=== PATIENT | male | born 1970 | race African-American/Black ===

== ENCOUNTER 2016-10-07 05:41 | Emergency (ER) | payer OTHER ==
--- NOTE | 2016-10-07 06:05 | PDOC ---
History of Present Illness - General History Source: Patient Exam Limitations: No Limitations - History of Present Illness Initial Comments: 10/07/16 06:15 The patient is a 45 year old male with significant past medical history diabetes and hypertension who presents to the ED for less than 24 hours of headache and abdominal pain. Patient reports he went out for ice cream around 10pm last night and subsequently developed a headache. After waking up this morning he developed abdominal pain, which he describes as nonradiating and pressure-like sensation in the epigastric region. Denies nausea, vomiting, or diarrhea. States he is compliant with his medications. However, he did not take his blood pressure medications prior to arrival. Denies any sick contacts or recent travels. The patient denies fever, chills, cough, SOB, chest pain, and palpitations. Allergies: NKDA Social History: Denies tobacco or drug use. Past Surgical History: None reported PCP: Dr. Malia Alicea <Concetta Laureano - Last Filed: 10/07/16 06:15> - General History Source: Patient <Good Serrano - Last Filed: 10/07/16 19:18> - General Stated Complaint: STOMACH AND HEAD HURTING Time Seen by Provider: 10/07/16 06:01 Past History <Concetta Laureano - Last Filed: 10/07/16 06:15> - Past Medical History Anemia: No Asthma: Yes Cancer: No Cardiac Disorders: No CVA: No COPD: No CHF: No Dementia: No Diabetes: Yes GI Disorders: Yes (GERD) Disorders: No HTN: Yes Hypercholesterolemia: Yes Liver Disease: (FATTY LIVER) Seizures: No Thyroid Disease: No - Surgical History Abdominal Surgery: (umbilcial hernia repair) Appendectomy: No Cardiac Surgery: No Cholecystectomy: No Lung Surgery: No Neurologic Surgery: No Orthopedic Surgery: No - Psycho/Social/Smoking Cessation Hx Anxiety: No Suicidal Ideation: No Smoking Status: No Smoking History: Never smoked Have you smoked in the past 12 months: No Number of Cigarettes Smoked Daily: 0 If you are a former smoker, when did you quit?: 1994 Hx Alcohol Use: No Drug/Substance Use Hx: No Substance Use Type: None Hx Substance Use Treatment: No <Good Serrano - Last Filed: 10/07/16 19:18> - Past Medical History Allergies/Adverse Reactions: Allergies Allergy/AdvReac Type Severity Reaction Status Date / Time shellfish derived Allergy Rash Verified 10/07/16 11:06 Home Medications: Ambulatory Orders Glipizide [Glipizide ER] 5 mg PO DAILY 09/15/12 Amlodipine Besylate 10 mg PO DAILY 10/07/16 Losartan Potassium 50 mg PO DAILY 10/07/16 Review of Systems - Review of Systems Able to Perform ROS?: Yes Comments:: 10/07/16 06:15 CONSTITUTIONAL: Absent: fever, no chills, no fatigue EYES: Absent: visual changes ENT: Absent: ear pain, no sore throat CARDIOVASCULAR: Absent: chest pain, no palpitations RESPIRATORY: Absent: cough, no SOB GI: +abdominal pain Absent: no nausea, no vomiting, no constipation, no diarrhea GENITOURINARY: Absent: dysuria, no frequency, no hematuria MUSCULOSKELETAL: Absent: back pain, no arthralgia, no myalgia SKIN: Absent: rash NEURO: +headache <Concetta Laureano - Last Filed: 10/07/16 06:15> *Physical Exam - Vital Signs Last Vital Signs Temp Pulse Resp BP Pulse Ox 97.6 F 68 18 159/93 100 10/07/16 05:42 10/07/16 05:42 10/07/16 05:42 10/07/16 05:42 10/07/16 05:42 - Physical Exam Comments: 10/07/16 06:15 GENERAL: Well-appearing, well-nourished. Mild distress. HEENT: Normocephalic, atraumatic. PERRL, EOM intact. CARDIOVASCULAR: Normal S1, S2. Regular rate and rhythm. PULMONARY: Clear to auscultation bilaterally. ABDOMEN: Soft, non-distended, non-tender. EXTREMITIES: Normal ROM in all four extremities. No gross deformities. SKIN: Warm, dry. No rash NEUROLOGICAL: No focal neurological deficits. <Concetta Laureano - Last Filed: 10/07/16 06:15> ED Treatment Course - LABORATORY CBC & Chemistry Diagram: 10/07/16 06:31 10/07/16 06:31 <Good Serrano - Last Filed: 10/07/16 19:18> Medical Decision Making - Medical Decision Making 10/07/16 19:18 Dr. Serrano: The scribe's documentation has been prepared under my direction and personally reviewed by me in its entirery. I confirm that the note above accurately reflects all work, treatment, procedures, and medical decision making performed by me. <Good Serrano - Last Filed: 10/07/16 19:18> *DC/Admit/Observation/Transfer - Attestations Scribe Attestion: 10/07/16 06:16 Documentation prepared by Concetta Laureano, acting as medical referral coordinator for Good Serrano MD/DO. <Concetta Laureano - Last Filed: 10/07/16 06:15> - Discharge Dispostion Admit: No <Good Serrano - Last Filed: 10/07/16 19:18> Diagnosis at time of Disposition: Headache Qualifiers: Headache type: unspecified Headache chronicity pattern: acute headache Intractability: not intractable Qualified Code(s): R51 - Headache High blood pressure Qualifiers: Hypertension type: essential hypertension Qualified Code(s): I10 - Essential ( primary) hypertension - Discharge Dispostion Disposition: HOME Condition at time of disposition: Stable - Referrals Referrals: Malia Alicea MD [Primary Care Provider] - - Patient Instructions Printed Discharge Instructions: DI for High Blood Pressure, DI for Headache Additional Instructions: Thank you for coming in to the ER today Please take medications as prescribed please follow up with Dr Malia Vallecillo within 1 week Please return to the ER with ANY other concerns or complaints - Post Discharge Activity Work/School Note: Back to Work
[2016-10-07] MEDS ORDERED: LOSARTAN POTASSIUM 50 MG TABLET (FP) PO ONE (06:07)
[2016-10-07 06:09] VITALS: TEMP 97.6; BMI 41.9
[2016-10-07] MEDS ORDERED: LOSARTAN POTASSIUM 25 MG TABLET ONE (06:20)
[2016-10-07 06:36] LABS: BASOPHIL 0.9 % (0-2.0); EOSINOPHIL 3.7 % (0-4.5); MCH 28.2 pg (25.7-33.7); MCHC 32.1 g/dl (32.0-35.9); MEAN CELL VOLUME 87.8 fl (80-96); NEUTROPHILS 50.6 % (42.8-82.8); PLATELET COUNT 138 K/MM3 (134-434); RDW 15.2 % (11.9-15.9); WHITE BLOOD COUNT 3.3 K/mm3 (4.0-10.0)
[2016-10-07 07:09] LABS: INR 1.12 (0.82-1.09); PROTHROMBIN TIME (PATIENT) 12.3 SEC (9.98-11.88)
[2016-10-07 07:16] LABS: MAGNESIUM 2.2 mg/dL (1.8-2.4)
--- NOTE | 2016-10-07 07:19 | PDOC ---
*Physical Exam - Vital Signs Last Vital Signs Temp Pulse Resp BP Pulse Ox 97.6 F 68 18 159/93 100 10/07/16 05:42 10/07/16 05:42 10/07/16 05:42 10/07/16 05:42 10/07/16 05:47 ED Treatment Course - LABORATORY CBC & Chemistry Diagram: 10/07/16 06:31 10/07/16 06:31 - ADDITIONAL ORDERS Additional order review: Laboratory Results 10/07/16 06:31 Magnesium 2.2 Total Amylase 68 Lipase 87 10/07/16 06:31 RBC 4.64 MCV 87.8 MCHC 32.1 RDW 15.2 MPV 11.0 Neutrophils % 50.6 Lymphocytes % 35.3 D Monocytes % 9.5 Eosinophils % 3.7 Basophils % 0.9 - Medications Given in the ED: ED Medications Discontinued Medications Generic Name Dose Route Start Last Admin Trade Name Freq PRN Reason Stop Dose Admin Losartan Potassium 50 mg 10/07/16 06:07 10/07/16 06:19 Cozaar - PO 10/07/16 06:08 50 mg ONCE ONE Administration Medical Decision Making - Medical Decision Making 10/07/16 07:18 I received this patient on sign out Pt presents to the ER with headache and abdominal pain His symptoms began at approximately 10 pm 10/07/16 07:19 Laboratory Tests 10/07/16 10/07/16 06:31 06:31 WBC 3.3 L Hgb 13.1 D Hct 40.7 Plt Count 138 Magnesium 2.2 Total Amylase 68 Lipase 87 CMP pending Pt given his anti hypertensive which he did not take yesterday 10/07/16 07:36 Upon re assessment, pt states he feels well No headache now States his headache was a gradual onset, located on the left side of his head No focal weakness or numbness No dizziness No visual changes No chest pain Currently, pt headache has completely resolved Pt also states that his abdominal pain has completely resolved 10/07/16 07:38 10/07/16 07:38 Laboratory Tests 10/07/16 06:31 BUN 17 D Creatinine 1.3 Creatine Kinase 775 H Troponin I < 0.02 10/07/16 07:51 Laboratory Tests 10/07/16 06:31 CK-MB (CK-2) 6.130 H Troponin I < 0.02 Pt CKMB is elevated Will repeat troponin in 4 hours 10/07/16 07:52 10/07/16 11:30 Laboratory Tests 10/07/16 10:11 Creatine Kinase 780 H Troponin I < 0.02 Will contact cardiology 10/07/16 11:37 Pt CK index low Will ask pt to stay hydrated Will ask patient to monitor his urine output and monitor himself for darkening of his urine Pt given copies of all labs Pt asked to follow up with PMD within 1 week Return to the Er for any other concerns or complaints 10/07/16 11:38 *DC/Admit/Observation/Transfer Diagnosis at time of Disposition: Headache Qualifiers: Headache type: unspecified Headache chronicity pattern: acute headache Intractability: not intractable Qualified Code(s): R51 - Headache Hypertension Qualifiers: Hypertension type: essential hypertension Qualified Code(s): I10 - Essential ( primary) hypertension - Discharge Dispostion Disposition: HOME Admit: No - Referrals Referrals: Malia Alicea MD [Primary Care Provider] - - Patient Instructions Printed Discharge Instructions: DI for Headache, DI for High Blood Pressure Additional Instructions: Thank you for coming in to the ER today Please take medications as prescribed please follow up with Dr Malia Vallecillo within 1 week Please return to the ER with ANY other concerns or complaints - Post Discharge Activity Work/School Note: Back to Work
[2016-10-07 07:20] LABS: ALBUMIN 3.4 g/dl (3.4-5.0); ANION GAP 6 (8-16); BILIRUBIN,TOTAL 0.5 mg/dL (0.2-1.0); CALCIUM 8.6 mg/dL (8.5-10.1); CO2 32 mmol/L (21-32); COCKROFT - GAULT 143.31; CREATININE 1.3 mg/dL (0.7-1.3); GLUCOSE,RANDOM 128 mg/dL (74-106); SGOT/AST 30 U/L (15-37); SGPT/ALT 37 U/L (12-78); TOT PROT 6.4 g/dl (6.4-8.2)
[2016-10-07 07:23] LABS: ALK PHOS 75 U/L (45-117); TROPONIN I < 0.02 ng/ml (0.00-0.05)
--- NOTE | 2016-10-07 10:30 | EKG ---
Test Reason : Blood Pressure : / mmHG Vent. Rate : 065 BPM Atrial Rate : 065 BPM P-R Int : 170 ms QRS Dur : 102 ms QT Int : 422 ms P-R-T Axes : 052 005 022 degrees QTc Int : 438 ms NORMAL SINUS RHYTHM NORMAL ECG WHEN COMPARED WITH ECG OF 15-SEP-2012 06:08, NO SIGNIFICANT CHANGE WAS FOUND Confirmed by SEAN FIELDS MD ([id number]) on 10/07/2016 10:29:50 AM Referred By: Confirmed By:SEAN FIELDS MD
[2016-10-07 11:21] LABS: TROPONIN I < 0.02 ng/ml (0.00-0.05)
[2016-10-07 11:50] VITALS: BP 146/84; PULSE 72
== END 2016-10-07 11:58 | disposition home or self-care (01) ==
LOC: JER 05:41
DX: R51 Headache (principal); I10 Essential (primary) hypertension; E11.9 Type 2 diabetes mellitus without complications; J45.909 Unspecified asthma, uncomplicated; K21.9 Gastro-esophageal reflux disease without esophagitis; K76.0 Fatty (change of) liver, not elsewhere classified; Z91.013 Allergy to seafood
CPT/HCPCS: 36415; 80053; 82150; 82550; 82553; 83690; 83735; 84484; 85025; 85610; 93005; 93010; 99285-25

== ENCOUNTER 2017-02-26 07:52 | Emergency (ER) | payer OTHER ==
[2017-02-26 08:12] VITALS: TEMP 98.3; BMI 39.5
[2017-02-26] MEDS ORDERED: KETOROLAC TROMETHAMINE 30 MG/1 ML VIAL IVPUSH ONE (08:31)
[2017-02-26] MEDS ORDERED: SODIUM CHLORIDE 1,000 ML IV STA (08:31)
[2017-02-26] MEDS ORDERED: PANTOPRAZOLE SODIUM 40 MG in SODIUM CHLORIDE 100 ML IVPB ONE (08:31)
[2017-02-26] MEDS ORDERED: ONDANSETRON 4 MG/2 ML VIAL IVPUSH ONE (08:31)
[2017-02-26] MEDS ORDERED: ONDANSETRON 4 MG/2 ML VIAL ONE (09:01)
[2017-02-26] MEDS ORDERED: PANTOPRAZOLE SODIUM 40 MG VIAL ONE (09:01)
--- NOTE | 2017-02-26 09:49 | PDOC ---
History of Present Illness - General Chief Complaint: Pain, Acute Stated Complaint: STOMACH PAIN Time Seen by Provider: 02/26/17 08:25 History Source: Patient Exam Limitations: No Limitations - History of Present Illness Travel History: No Initial Comments: 02/26/17 09:49 46-year-old male presents to the ED with complaints of epigastric burning and dull pain that radiates his right upper quadrant since this morning. Patient states yesterday was drinking alcohol along with fruit juices and states had no discomfort then. Patient denies fever, chills but states mild nausea. Patient also states feels dehydrated. Patient states has had similar symptoms like in the past also from drinking and normally takes Gas-X with good relief but did not have anything at home to decided come to the ER. Patient has no complaints of change in bowel, change in urine pattern, vomiting, constipation, radiation of pain, or difficulty breathing. 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 Timing/Duration: reports: constant Quality: reports: burning, dullness Abdominal Pain Onset Location: reports: epigastric Pain Radiation: reports: RUQ Activities at Onset: reports: none Aggravating Factors: improves with: None Alleviating Factors: improves with: None Past History - Past Medical History Allergies/Adverse Reactions: Allergies Allergy/AdvReac Type Severity Reaction Status Date / Time shellfish derived Allergy Rash Verified 02/26/17 08:06 Home Medications: Ambulatory Orders Glipizide [Glipizide ER] 5 mg PO DAILY 09/15/12 Losartan Potassium 50 mg PO DAILY 10/07/16 Anemia: No Asthma: Yes Cancer: No Cardiac Disorders: No CVA: No COPD: No CHF: No Dementia: No Diabetes: Yes GI Disorders: No Disorders: No HTN: Yes Hypercholesterolemia: Yes Liver Disease: (FATTY LIVER) Seizures: No Thyroid Disease: No - Surgical History Abdominal Surgery: Yes (umbilcial hernia repair) Appendectomy: No Cardiac Surgery: No Cholecystectomy: No Lung Surgery: No Neurologic Surgery: No Orthopedic Surgery: No - Suicide/Smoking/Psychosocial Hx Smoking Status: No Smoking History: Never smoked Have you smoked in the past 12 months: No Number of Cigarettes Smoked Daily: 0 If you are a former smoker, when did you quit?: 1994 Information on smoking cessation initiated: No Hx Alcohol Use: Yes Drug/Substance Use Hx: No Substance Use Type: None Hx Substance Use Treatment: No Patient Lives Alone: No Lives with/in: spouse/SO Abd/GI Specific PMHX - Complaint Specific PMHX GI Ulcer Disease: No Review of Systems - Review of Systems Able to Perform ROS?: No Constitutional: No: Symptoms Reported HEENTM: No: Symptoms Reported Respiratory: No: Symptoms reported Cardiac (ROS): No: Symptoms Reported ABD/GI: Yes: Nausea, Indigestion : No: Symptoms Reported Musculoskeletal: No: Symptoms Reported Integumentary: No: Symptoms Reported Neurological: No: Symptoms reported Endocrine: No: Symptoms Reported *Physical Exam - Vital Signs Last Vital Signs Temp Pulse Resp BP Pulse Ox 98.3 F 89 20 150/87 100 02/26/17 08:07 02/26/17 08:07 02/26/17 08:07 02/26/17 08:07 02/26/17 08:07 - Physical Exam General Appearance: Yes: Nourished, Appropriately Dressed. No: Apparent Distress HEENT: negative: Pale Conjunctivae Neck: positive: Supple Respiratory/Chest: positive: Lungs Clear, Normal Breath Sounds. negative: Respiratory Distress, Accessory Muscle Use Cardiovascular: positive: Regular Rhythm, Regular Rate. negative: Murmur Gastrointestinal/Abdominal: positive: Normal Bowel Sounds, Soft, Tenderness ( epigastric. right epigastric. Negative [place]). negative: Distended, Guarding , Rebound, Hernia, Mass Musculoskeletal: negative: CVA Tenderness (R) Integumentary: positive: Normal Color, Warm, Moist Neurologic: positive: Motor Strength 5/5 (ambulatory) ED Treatment Course - LABORATORY CBC & Chemistry Diagram: 02/26/17 08:30 02/26/17 10:45 Medical Decision Making - Medical Decision Making 02/26/17 10:04 Patient was of nausea and epigastric pain after drinking last night. Patient with similar symptoms in the past but denies GI disorders and has not seen a gastric neurologist. Patient exam was tender to the epigastric and right epigastric area. patient with likely gastritis. Will rule out inflammatory process and pancreatitis.Patient ordered for Protonix, IV fluids, Zofran, Toradol CBC, comp and lipase. 02/26/17 12:12 Laboratory Tests 02/26/17 10:45 Sodium 139 Potassium 4.2 Chloride 104 Carbon Dioxide 28 Anion Gap 7 L Creatinine 1.4 H Creat Clearance w eGFR 54.09 Random Glucose 140 H Calcium 8.4 L AST 23 D ALT 33 Lipase 122 02/26/17 12:12 Laboratory Tests 01/23/11 08/29/13 10/07/16 08:49 09:41 06:31 WBC 3.2 L 3.3 L Hgb Hct Plt Count 126.0 L 138 MPV 02/26/17 08:30 WBC 2.7 L Hgb 13.3 Hct 39.8 Plt Count 127 L MPV 11.5 H Patient states feeling better after receiving medication. Patient to be discharged home with Protonix and a GI referral. *DC/Admit/Observation/Transfer Diagnosis at time of Disposition: Epigastric abdominal pain, Nausea - Discharge Dispostion Disposition: HOME Condition at time of disposition: Improved - Referrals Referrals: Malia Alicea MD [Primary Care Provider] - Thor Hoang DO [Staff Physician] - - Patient Instructions Printed Discharge Instructions: DI for Epigastric Pain, DI for Nausea -- Adult Additional Instructions: Please follow-up with referral plastic jig and fixture builder and take Protonix as prescribed. Please avoid acidy, greasy spicy food and avoid excessive alcohol use.
[2017-02-26 10:30] LABS: BASOPHIL 1.2 % (0-2.0); EOSINOPHIL 3.2 % (0-4.5); MCH 29.3 pg (25.7-33.7); MCHC 33.3 g/dl (32.0-35.9); MEAN PLT VOLUME 11.5 fl (7.5-11.1); NEUTROPHILS 56.3 % (42.8-82.8); PLATELET COUNT 127 K/MM3 (134-434); RDW 14.9 % (11.9-15.9); WHITE BLOOD COUNT 2.7 K/mm3 (4.0-10.0)
[2017-02-26 11:22] LABS: ALBUMIN 3.6 g/dl (3.4-5.0); ALK PHOS 92 U/L (45-117); ANION GAP 7 (8-16); BILIRUBIN,TOTAL 0.5 mg/dL (0.2-1.0); CALCIUM 8.4 mg/dL (8.5-10.1); CO2 28 mmol/L (21-32); CREATININE 1.4 mg/dL (0.7-1.3); GLUCOSE,RANDOM 140 mg/dL (74-106); SGOT/AST 23 U/L (15-37); SGPT/ALT 33 U/L (12-78); TOT PROT 6.8 g/dl (6.4-8.2)
[2017-02-26] MEDS ORDERED: ALBUTEROL SO4 2.5/IPRATROPIUM 0.5 INH SOL 3 ML VIAL.NEB. NEB ONE (12:15)
[2017-02-26 13:09] VITALS: BP 153/96; PULSE 66
== END 2017-02-26 13:09 | disposition home or self-care (01) ==
LOC: JER 07:52
PROC: 3E033GC Introduction of Other Therapeutic Substance into Peripheral Vein, Percutaneous Approach (ICD-10-PCS; principal; 2017-02-26)
PROC: 3E033GC Introduction of Other Therapeutic Substance into Peripheral Vein, Percutaneous Approach (ICD-10-PCS; 2017-02-26)
PROC: 3E0333Z Introduction of Anti-inflammatory into Peripheral Vein, Percutaneous Approach (ICD-10-PCS; 2017-02-26)
DX: K29.70 Gastritis, unspecified, without bleeding (principal); I10 Essential (primary) hypertension; E11.9 Type 2 diabetes mellitus without complications; Z79.84 Long term (current) use of oral hypoglycemic drugs; E78.00 Pure hypercholesterolemia, unspecified
CPT/HCPCS: 36415; 80053; 83690; 85025; 96365; 96375; 99282-25

== ENCOUNTER 2017-06-20 14:32 | Emergency (ER) | payer OTHER ==
[2017-06-20 15:21] VITALS: BMI 42.2
[2017-06-20] MEDS ORDERED: FAMOTIDINE IV 20 MG/12 ML VIAL IVPUSH ONE (16:08)
[2017-06-20] MEDS ORDERED: MAG HYDROX/AL HYDROX/SIMETH 355 ML ORAL.SUSP PO ONE (16:08)
--- NOTE | 2017-06-20 16:12 | PDOC ---
History of Present Illness - General Chief Complaint: Chest Pain Stated Complaint: CHEST PAIN, ABD PAIN Time Seen by Provider: 06/20/17 15:45 History Source: Patient - History of Present Illness Timing/Duration: other Associated Symptoms: denies: cough, diaphoresis, fever/chills, headaches, nausea /vomiting, shortness of breath Past History - Past Medical History Allergies/Adverse Reactions: Allergies Allergy/AdvReac Type Severity Reaction Status Date / Time shellfish derived Allergy Rash Verified 02/26/17 08:06 Home Medications: Ambulatory Orders Glipizide [Glipizide ER] 5 mg PO DAILY 09/15/12 Losartan Potassium 50 mg PO DAILY 10/07/16 Pantoprazole Sodium [Protonix] 40 mg PO DAILY #30 tablet. 02/26/17 Famotidine [Pepcid -] 20 mg PO DAILY #14 tablet 06/20/17 Mag Hydrox/Al Hydrox/Simeth [Mylanta Suspension -] 30 ml PO Q6H #1 bottle Anemia: No Asthma: Yes Cancer: No Cardiac Disorders: No CVA: No COPD: No CHF: No DVT: No Dementia: No Diabetes: Yes GI Disorders: No Disorders: No HTN: Yes Hypercholesterolemia: Yes Liver Disease: (FATTY LIVER) Seizures: No Thyroid Disease: No - Surgical History Abdominal Surgery: Yes (umbilcial hernia repair) Appendectomy: No Cardiac Surgery: No Cholecystectomy: No Lung Surgery: No Neurologic Surgery: No Orthopedic Surgery: No - Suicide/Smoking/Psychosocial Hx Smoking Status: No Smoking History: Never smoked Have you smoked in the past 12 months: No Number of Cigarettes Smoked Daily: 0 If you are a former smoker, when did you quit?: 1994 Information on smoking cessation initiated: No Hx Alcohol Use: No Drug/Substance Use Hx: No Substance Use Type: None Hx Substance Use Treatment: No Review of Systems - Review of Systems Constitutional: No: Chills, Fever Respiratory: No: Shortness of Breath Cardiac (ROS): Yes: Palpitations. No: Chest Pain, Lightheadedness, Syncope ABD/GI: No: Constipated, Diarrhea, Nausea, Vomiting *Physical Exam - Vital Signs Last Vital Signs Temp Pulse Resp BP Pulse Ox 98.7 F 78 18 157/78 98 06/20/17 15:06 06/20/17 15:06 06/20/17 15:06 06/20/17 15:06 06/20/17 15:44 - Physical Exam General Appearance: Yes: Appropriately Dressed. No: Apparent Distress HEENT: positive: Normal Voice Neck: positive: Supple Respiratory/Chest: positive: Lungs Clear, Normal Breath Sounds. negative: Respiratory Distress Cardiovascular: positive: Regular Rate, S1, S2 Gastrointestinal/Abdominal: positive: Soft. negative: Tender Integumentary: positive: Dry, Warm Neurologic: positive: Fully Oriented, Alert, Normal Mood/Affect Heart Score/ECG Review - ECG Intrepretation Comment:: 06/20/17 16:13 Twelve-lead EKG was performed and reviewed by me. There is normal sinus rhythm with a normal rate. The axis is normal. The intervals are normal. There are no ST or T wave abnormalities. Impression: Normal twelve-lead EKG ED Treatment Course - LABORATORY CBC & Chemistry Diagram: 06/20/17 16:12 06/20/17 16:12 - RADIOLOGY Radiology Studies Ordered: Category Date Time Status CHEST PA & LAT [RAD] Stat Radiology 06/20/17 15:47 Ordered Medical Decision Making - Medical Decision Making 06/20/17 16:09 46-year-old male history of hypertension and diabetes, here with multiple complaints. Patient states about 4 days ago while at work, he developed palpitations that lasted for a couple of minutes and resolved. No further episodes. Denies chest pain, shortness of breath, dizziness, leg pain or swelling. Also complaining of mild epigatsric abdominal pain that sometimes worsens with food. No change in bowel movements, melena, BRBPR, nausea or vomiting. States he was seen in the ED for similar abdominal pain and diagnosed with possible gastritis. Was told to follow up with GI, but patient has not yet done so See exam Transient palpitation Since resolved No CP/SOB PERCs out Exam unremarkable -ekg -labs Epigastric pain Recurrent Dx w/ ? gastritis on prior ED visit Exam unremarkable -GI cocktail and reassess 06/20/17 17:47 EKG, chest x-ray and labs unremarkable. Patient reports feeling significantly better after meds. Will discharge with prescription and PMD follow-up *DC/Admit/Observation/Transfer Diagnosis at time of Disposition: Epigastric abdominal pain - Discharge Dispostion Disposition: HOME Condition at time of disposition: Improved - Prescriptions Prescriptions: Famotidine [Pepcid -] 20 mg PO DAILY #14 tablet Mag Hydrox/Al Hydrox/Simeth [Mylanta Suspension -] 30 ml PO Q6H #1 bottle - Referrals - Patient Instructions Printed Discharge Instructions: Gastritis Additional Instructions: Take medications as prescribed and follow-up with your PMD - Post Discharge Activity
[2017-06-20] MEDS ORDERED: MAG HYDROX/AL HYDROX/SIMETH 30 ML UNIT-DOSE CUP ONE (16:17)
[2017-06-20] MEDS ORDERED: FAMOTIDINE 20 MG/50 ML IVPB 20 MG/50 ML MG IVPB ONE (16:18)
[2017-06-20 16:21] LABS: BASO % 1.1 % (0-2.0); EOS % 2.3 % (0-4.5); HEMOGLOBIN 14.3 GM/dL (11.7-16.9); LYMPH % 43.3 % (8-40); MCH 28.2 pg (25.7-33.7); MCHC 32.5 g/dl (32.0-35.9); MEAN CELL VOLUME 86.9 fl (80-96); MEAN PLT VOLUME 11.6 fl (7.5-11.1); MONO % 8.6 % (3.8-10.2); NEUT % 44.7 % (42.8-82.8); PLATELET COUNT 148 K/MM3 (134-434); RBC 5.06 M/mm3 (4.00-5.60); RDW 14.7 % (11.9-15.9); WHITE BLOOD COUNT 3.8 K/mm3 (4.0-10.0)
[2017-06-20 17:10] LABS: ALBUMIN 3.8 g/dl (3.4-5.0); ANION GAP 5 (8-16); BLOOD UREA NITROGEN 13 mg/dL (7-18); CALCIUM 8.5 mg/dL (8.5-10.1); CHLORIDE 105 mmol/L (98-107); CO2 28 mmol/L (21-32); CREATININE 1.3 mg/dL (0.7-1.3); GLUCOSE,RANDOM 112 mg/dL (74-106); LIPASE 115 U/L (73-393); POTASSIUM 4.6 mmol/L (3.5-5.1); SGOT/AST 20 U/L (15-37); SGPT/ALT 27 U/L (12-78); SODIUM 138 mmol/L (136-145)
[2017-06-20 17:13] LABS: ALK PHOS 83 U/L (45-117); BILIRUBIN,TOTAL 0.6 mg/dL (0.2-1.0); TOT PROT 7.3 g/dl (6.4-8.2)
[2017-06-20 18:06] VITALS: BP 134/76; PULSE 81; TEMP 98
--- NOTE | 2017-06-21 08:54 | EKG ---
Test Reason : Blood Pressure : / mmHG Vent. Rate : 074 BPM Atrial Rate : 074 BPM P-R Int : 164 ms QRS Dur : 088 ms QT Int : 354 ms P-R-T Axes : 067 -01 045 degrees QTc Int : 392 ms NORMAL SINUS RHYTHM NORMAL ECG WHEN COMPARED WITH ECG OF 07-OCT-2016 06:35, NO SIGNIFICANT CHANGE WAS FOUND Confirmed by Bill Milligan MD ([id number]) on 06/21/2017 8:54:10 AM Referred By: Confirmed By:Bill Milligan MD
== END 2017-06-20 18:06 | disposition home or self-care (01) ==
LOC: JER 14:32
PROC: 3E033GC Introduction of Other Therapeutic Substance into Peripheral Vein, Percutaneous Approach (ICD-10-PCS; principal; 2017-06-20)
DX: R10.13 Epigastric pain (principal); I10 Essential (primary) hypertension; E78.00 Pure hypercholesterolemia, unspecified; E11.9 Type 2 diabetes mellitus without complications; Z79.84 Long term (current) use of oral hypoglycemic drugs
CPT/HCPCS: 36415; 71046-TC-FY; 80053; 82550; 82553; 83690; 84484; 85025; 93005; 93010; 96374; 99284-25

== ENCOUNTER 2017-07-04 07:27 | Emergency (ER) | payer OTHER ==
[2017-07-04 07:33] VITALS: BMI 41.5
--- NOTE | 2017-07-04 07:48 | PDOC ---
History of Present Illness - General History Source: Patient Exam Limitations: No Limitations - History of Present Illness Initial Comments: 07/04/17 08:35 The patient is a 46 year old male, with a significant past medical history of Asthma, Diabetes, GERD, HTN, HLD, Fatty Liver who presents to the emergency department with abdominal pain and headache for the past 2 hours. Patient reports constant, RUQ abdominal pain, 6/10 in severity with associated nausea and loose bowels (nonbloody). Patient reports having similar abdominal pain in the past and was referred to GI for follow up. Patient also reports tension headache however denies taking any medications for relief. Patient presents to the ED for further evaluation. Patient denies chest pain, headache or dizziness. Patient denies abdominal pain, vomit, constipation. Patient denies dysuria, frequency, urgency or hematuria. Patient denies sick contacts or recent travel. Allergies: shellfish Past surgical history: Umbilical hernia repair Social history: Former smoker PCP: Elvis Hickey <Ira Conde - Last Filed: 07/04/17 08:35> <Sarah Musa - Last Filed: 07/04/17 11:13> - General Chief Complaint: Pain, Acute Stated Complaint: HEADACHE AND STOMACH PAIN Time Seen by Provider: 07/04/17 07:47 Past History <Ira Conde - Last Filed: 07/04/17 08:35> - Past Medical History Anemia: No Asthma: Yes Cancer: No Cardiac Disorders: No CVA: No COPD: No CHF: No DVT: No Dementia: No Diabetes: Yes GI Disorders: No Disorders: No HTN: Yes Hypercholesterolemia: Yes Liver Disease: (FATTY LIVER) Seizures: No Thyroid Disease: No - Surgical History Abdominal Surgery: Yes (umbilcial hernia repair) Appendectomy: No Cardiac Surgery: No Cholecystectomy: No Lung Surgery: No Neurologic Surgery: No Orthopedic Surgery: No - Suicide/Smoking/Psychosocial Hx Smoking Status: No Smoking History: Former smoker Have you smoked in the past 12 months: No Number of Cigarettes Smoked Daily: 0 If you are a former smoker, when did you quit?: 1994 Information on smoking cessation initiated: No Hx Alcohol Use: Yes Drug/Substance Use Hx: No Substance Use Type: None Hx Substance Use Treatment: No <Sarah Musa - Last Filed: 07/04/17 11:13> - Past Medical History Allergies/Adverse Reactions: Allergies Allergy/AdvReac Type Severity Reaction Status Date / Time shellfish derived Allergy Rash Verified 07/04/17 07:29 Home Medications: Ambulatory Orders Glipizide [Glipizide ER] 5 mg PO DAILY 09/15/12 Losartan Potassium 50 mg PO DAILY 10/07/16 Pantoprazole Sodium [Protonix] 40 mg PO DAILY #30 tablet. 02/26/17 Famotidine [Pepcid -] 20 mg PO DAILY #14 tablet 06/20/17 Mag Hydrox/Al Hydrox/Simeth [Mylanta Suspension -] 30 ml PO Q6H #1 bottle Review of Systems - Review of Systems Able to Perform ROS?: Yes Comments:: 07/04/17 08:35 GENERAL/CONSTITUTIONAL: No: fever, chills, weakness, loss of appetite. HEAD, EYES, EARS, NOSE AND THROAT: No: change in vision, ear pain, discharge, sore throat, throat swelling. CARDIOVASCULAR: No: chest pain, lightheadedness, palpitations, syncope RESPIRATORY: No: cough, shortness of breath, wheezing, hemoptysis, stridor. GASTROINTESTINAL: +nausea, abdominal pain. No: vomiting, diarrhea, rectal bleeding, constipation. GENITOURINARY: No: dysuria, hematuria, frequency, urgency, flank pain. MUSCULOSKELETAL: No: back pain, neck pain, joint pain, muscle swelling or pain SKIN: No: lesions, pallor, rash or easy bruising. NEUROLOGIC: No: headache, vertigo, paresthesias, weakness ENDOCRINE: No: unexplained weight gain or loss HEMATOLOGIC/LYMPHATIC: No: anemia, easy bleeding, swelling nodes <Ira Conde - Last Filed: 07/04/17 08:35> *Physical Exam - Vital Signs Last Vital Signs Temp Pulse Resp BP Pulse Ox 97.7 F 75 19 160/92 99 07/04/17 07:30 07/04/17 07:30 07/04/17 07:30 07/04/17 07:30 07/04/17 07:30 - Physical Exam Comments: 07/04/17 08:35 GENERAL: The patient is in no acute distress. HEAD: Normal with no signs of trauma. EYES: PERRLA, EOMI, sclera anicteric, conjunctiva clear. ENT: Ears normal, nares patent, oropharynx clear without exudates. Moist mucous membranes. NECK: Normal range of motion, supple without lymphadenopathy, JVD, or masses. LUNGS: Breath sounds equal, clear to auscultation bilaterally. No wheezes, and no crackles. HEART:Regular rate and rhythm, normal S1 and S2 without murmur, rub or gallop. ABDOMEN: +RUQ tenderness. Soft, nontender, normoactive bowel sounds. No guarding, no rebound. EXTREMITIES: Normal range of motion, no edema. No clubbing or cyanosis. No erythema, or tenderness. NEUROLOGICAL: Cranial nerves II through XII grossly intact. Normal speech. No focal neurological deficits. MUSCULOSKELETAL: Back nontender to palpation, no CVA tenderness SKIN: Warm, Dry, normal turgor, no rashes or lesions noted. <Ira Conde - Last Filed: 07/04/17 08:35> - Vital Signs Last Vital Signs Temp Pulse Resp BP Pulse Ox 97.7 F 75 19 160/92 99 07/04/17 07:30 07/04/17 07:30 07/04/17 07:30 07/04/17 07:30 07/04/17 07:30 <Sarah Musa - Last Filed: 07/04/17 11:13> ED Treatment Course - LABORATORY CBC & Chemistry Diagram: 07/04/17 08:30 07/04/17 08:30 - Medications Given in the ED: ED Medications Discontinued Medications Generic Name Dose Route Start Last Admin Trade Name Freq PRN Reason Stop Dose Admin Famotidine/Sodium Chloride 20 mg in 50 mls @ 100 mls/hr 07/04/17 08:00 08:33 Pepcid 20 Mg Premixed Ivpb - IVPB 07/04/17 08:29 100 mls/hr ONCE ONE Administration Ondansetron HCl 4 mg 07/04/17 08:00 07/04/17 08:33 Zofran Injection IVPUSH 07/04/17 08:01 4 mg ONCE ONE Administration <Ira Conde - Last Filed: 07/04/17 08:35> - LABORATORY CBC & Chemistry Diagram: 07/04/17 08:30 07/04/17 08:30 <Sarah Musa - Last Filed: 07/04/17 11:13> Medical Decision Making - Medical Decision Making 07/04/17 09:07 Mr Grove is a 46 yo M with a history of diabetes, hypertension, hyperlipidemia who presents emergency department with a complaint of abdominal pain. Patient states he was in his usual state of health last night when he went to bed. When he woke this morning he noted upper abdominal pain. No fever, chills. (+) nausea No vomiting or diarrhea Patient states he's had these symptoms in the past, has seen his primary care physician. Patient is due to see a hides inspector for his symptoms. Patient states he did not have anything to eat this morning, last meal was yesterday evening-Posta. Patient states he had several loose stools this morning No recent travel, no undercooked meals. Patient also notes a headache this morning which has now resolved On examination: No lower abdominal tenderness to palpation, no involuntary guarding. Patient abdomen is soft, nontender. Patient's right upper quadrant is tender to palpation, no epigastric tenderness to palpation Regular rate and rhythm Lungs are clear DD: Biliary pathology, gastritis, musculoskeletal pain Will do: Labs US Pepcid, Zofran IV hydration Re assess 07/04/17 11:10 Laboratory Tests 07/04/17 07/04/17 07/04/17 08:30 08:30 08:30 WBC 3.4 L Hgb 14.2 Hct 43.2 Plt Count 152 Sodium 140 Potassium 4.2 Chloride 103 Carbon Dioxide 31 BUN 14 Creatinine 1.3 Random Glucose 145 H D Creatine Kinase 719 H Creatine Kinase Index 0.8 CK-MB (CK-2) 6.175 H Troponin I < 0.02 Urine Ketones Negative Urine Blood Negative Urine Nitrite Negative Ur Leukocyte Esterase Negative EKG: Sinus rhythm, rate of 60 bpm, axis is normal, intervals are normal, no ST elevations or depressions, T waves upright Patient's ultrasound demonstrates no gallbladder wall thickening, no stones, no pericholecystic fluid Patient states he feels much better, pain has completely resolved Will plan to discharge to home Patient given copies of his ultrasound and labs. Patient asked to follow-up with his primary care physician. Return to the emergency department together concerns or complaints Clinical impression: Abdominal pain, initial presentation <Sarah Musa - Last Filed: 07/04/17 11:13> *DC/Admit/Observation/Transfer - Attestations Scribe Attestion: 07/04/17 08:35 Documentation prepared by Ira Conde, acting as medical insurance claims processor for Sarah Musa MD <Ira Conde - Last Filed: 07/04/17 08:35> - Discharge Dispostion Admit: No <Sarah Musa - Last Filed: 07/04/17 11:13> Diagnosis at time of Disposition: Abdominal pain - Discharge Dispostion Disposition: HOME Condition at time of disposition: Stable - Patient Instructions Printed Discharge Instructions: DI for Abdominal Pain-Adult Additional Instructions: Mr Grove Thank you for coming into the emergency Department today. Please be sure to follow up with your primary care physician. Please return to emergency department for any other concerns or complaints. Monitor yourself for fevers, chills, nausea, vomiting, inability to tolerate foods or liquids. If you notice any of these things, please feel free to return to the ER for reevaluation - Post Discharge Activity Forms/Work/School Notes: Back to Work
[2017-07-04] MEDS ORDERED: FAMOTIDINE 20 MG/50 ML IVPB 20 MG/50 ML MG IVPB ONE ×2 (08:00→08:32)
[2017-07-04] MEDS ORDERED: ONDANSETRON 4 MG/2 ML VIAL IVPUSH ONE (08:00)
[2017-07-04] MEDS ORDERED: ONDANSETRON *ODT* 4 MG TABLET ONE (08:31)
[2017-07-04] MEDS ORDERED: ONDANSETRON 4 MG/2 ML VIAL ONE (08:32)
[2017-07-04 08:42] LABS: BASO % 0.8 % (0-2.0); HEMATOCRIT 43.2 % (35.4-49); HEMOGLOBIN 14.2 GM/dL (11.7-16.9); LYMPH % 28.8 % (8-40); MCH 28.8 pg (25.7-33.7); MCHC 32.9 g/dl (32.0-35.9); MEAN CELL VOLUME 87.4 fl (80-96); MEAN PLT VOLUME 10.5 fl (7.5-11.1); MONO % 8.3 % (3.8-10.2); NEUT % 58.1 % (42.8-82.8); PLATELET COUNT 152 K/MM3 (134-434); RBC 4.94 M/mm3 (4.00-5.60); WHITE BLOOD COUNT 3.4 K/mm3 (4.0-10.0)
[2017-07-04 08:45] LABS: URINE APPEARANCE CLEAR; URINE BILIRUBIN NEGATIVE (NEGATIVE); URINE BLOOD NEGATIVE (NEGATIVE); URINE COLOR LTYELLOW; URINE GLUCOSE (UA) NEGATIVE (NEGATIVE); URINE KETONE NEGATIVE (NEGATIVE); URINE LEUK ESTERASE NEGATIVE (NEGATIVE); URINE NITRITE NEGATIVE (NEGATIVE); URINE PROTEIN NEGATIVE (NEGATIVE); URINE UROBILINOGEN NEGATIVE mg/dL (0.2-1.0)
[2017-07-04] MEDS ORDERED: SODIUM CHLORIDE 500 ML IV STA (09:11)
[2017-07-04 09:13] LABS: ALBUMIN 3.7 g/dl (3.4-5.0); AMYLASE 72 U/L (25-115); ANION GAP 6 (8-16); BLOOD UREA NITROGEN 14 mg/dL (7-18); CALCIUM 8.7 mg/dL (8.5-10.1); CHLORIDE 103 mmol/L (98-107); CO2 31 mmol/L (21-32); GLUCOSE,RANDOM 145 mg/dL (74-106); LIPASE 113 U/L (73-393); POTASSIUM 4.2 mmol/L (3.5-5.1); SODIUM 140 mmol/L (136-145)
[2017-07-04 09:15] LABS: ALK PHOS 83 U/L (45-117); BILIRUBIN,TOTAL 0.5 mg/dL (0.2-1.0); CREATININE 1.3 mg/dL (0.7-1.3); SGOT/AST 22 U/L (15-37); SGPT/ALT 29 U/L (12-78); TOT PROT 6.9 g/dl (6.4-8.2)
--- NOTE | 2017-07-04 10:32 | EKG ---
Test Reason : Blood Pressure : / mmHG Vent. Rate : 060 BPM Atrial Rate : 060 BPM P-R Int : 178 ms QRS Dur : 092 ms QT Int : 416 ms P-R-T Axes : 052 009 019 degrees QTc Int : 416 ms NORMAL SINUS RHYTHM NONSPECIFIC ST ABNORMALITY ABNORMAL ECG WHEN COMPARED WITH ECG OF 20-JUN-2017 14:42, NO SIGNIFICANT CHANGE WAS FOUND Confirmed by PIERRE CHRISTENSEN MD ([id number]) on 07/04/2017 10:32:05 AM Referred By: Confirmed By:PIERRE CHRISTENSEN MD
[2017-07-04 11:48] VITALS: BP 159/79; PULSE 77; TEMP 98.5
== END 2017-07-04 11:59 | disposition home or self-care (01) ==
LOC: JER 07:27
PROC: 3E033GC Introduction of Other Therapeutic Substance into Peripheral Vein, Percutaneous Approach (ICD-10-PCS; principal; 2017-07-04)
PROC: 3E0337Z Introduction of Electrolytic and Water Balance Substance into Peripheral Vein, Percutaneous Approach (ICD-10-PCS; 2017-07-04)
DX: R10.11 Right upper quadrant pain (principal); I10 Essential (primary) hypertension; E78.5 Hyperlipidemia, unspecified; E11.9 Type 2 diabetes mellitus without complications; J45.909 Unspecified asthma, uncomplicated; K21.9 Gastro-esophageal reflux disease without esophagitis; K76.0 Fatty (change of) liver, not elsewhere classified; Z87.891 Personal history of nicotine dependence; Z79.84 Long term (current) use of oral hypoglycemic drugs
CPT/HCPCS: 36415; 76705-TC; 80053; 81003; 82150; 82550; 82553; 83690; 84484; 85025; 87086; 93005; 93010; 99281-25

== ENCOUNTER 2017-10-18 01:05 | Emergency (ER) | payer OTHER ==
[2017-10-18 03:05] VITALS: BMI 40.8
--- NOTE | 2017-10-18 03:21 | PDOC ---
History of Present Illness - General Stated Complaint: ABD PAIN Time Seen by Provider: 10/18/17 03:20 - History of Present Illness Initial Comments: 47 year old male with PMH of Asthma, Diabetes, GERD, HTN, HLD, Fatty Liver who presents to the ED with RUQ abdominal pain for the past week that hasn't remitted. Patient admits that this may feel like his GERD pain but hasn't taken any of his antacid medications "just because". The pain does occasionally get worse with food. Denies fevers, chills, nausea, vomiting, diarrhea, constipation , or other symptoms. 10/18/17 04:06 Past History - Past Medical History Allergies/Adverse Reactions: Allergies Allergy/AdvReac Type Severity Reaction Status Date / Time shellfish derived Allergy Rash Verified 10/18/17 03:05 Home Medications: Ambulatory Orders Glipizide [Glipizide ER] 5 mg PO DAILY 09/15/12 Losartan Potassium 50 mg PO DAILY 10/07/16 Anemia: No Asthma: Yes Cancer: No Cardiac Disorders: No CVA: No COPD: No CHF: No DVT: No Dementia: No Diabetes: Yes GI Disorders: No Disorders: No HTN: Yes Hypercholesterolemia: Yes Liver Disease: (FATTY LIVER) Seizures: No Thyroid Disease: No - Surgical History Abdominal Surgery: Yes (umbilcial hernia repair) Appendectomy: No Cardiac Surgery: No Cholecystectomy: No Lung Surgery: No Neurologic Surgery: No Orthopedic Surgery: No - Suicide/Smoking/Psychosocial Hx Smoking Status: No Smoking History: Never smoked Have you smoked in the past 12 months: No Number of Cigarettes Smoked Daily: 0 If you are a former smoker, when did you quit?: 1994 Information on smoking cessation initiated: No Hx Alcohol Use: No Drug/Substance Use Hx: No Substance Use Type: None Hx Substance Use Treatment: No Review of Systems - Review of Systems Constitutional: No: Chills, Diaphoresis, Fever, Loss of Appetite HEENTM: No: Blurred Vision, Tearing, Recent change in vision Respiratory: No: Cough, Shortness of Breath, SOB with Exertion Cardiac (ROS): No: Irregular Heart Rate, Lightheadedness, Palpitations ABD/GI: Yes: Indigestion. No: Constipated, Diarrhea, Nausea, Poor Appetite, Vomiting, Tarry Stools : No: Dysuria, Discharge, Frequency, Flank Pain Musculoskeletal: No: Back Pain, Gout, Joint Pain Integumentary: No: Bruising, Change in Color, Dryness, Erythema, Flushing Neurological: No: Headache, Numbness, Paresthesia, Seizure Psychiatric: No: Anxiety, Depression Hematologic/Lymphatic: No: Anemia, Blood Clots, Easy Bleeding, Easy Bruising *Physical Exam - Vital Signs Last Vital Signs Temp Pulse Resp BP Pulse Ox 98.1 F 86 18 177/79 98 10/18/17 01:25 10/18/17 01:25 10/18/17 01:25 10/18/17 01:25 10/18/17 01:25 - Physical Exam General Appearance: Yes: Nourished, Appropriately Dressed. No: Apparent Distress HEENT: positive: EOMI, HASEEB, Normal ENT Inspection, Normal Voice, Symmetrical Neck: positive: Trachea midline, Normal Thyroid, Supple. negative: Tender, Rigid Respiratory/Chest: positive: Lungs Clear, Normal Breath Sounds. negative: Chest Tender, Respiratory Distress, Accessory Muscle Use Cardiovascular: positive: Regular Rhythm, Regular Rate Gastrointestinal/Abdominal: positive: Normal Bowel Sounds, Flat, Soft. negative : Tender Musculoskeletal: positive: Normal Inspection. negative: CVA Tenderness Extremity: positive: Normal Capillary Refill, Normal Inspection, Normal Range of Motion. negative: Tender Integumentary: positive: Normal Color, Dry, Warm Neurologic: positive: Fully Oriented, Alert, Normal Mood/Affect, Normal Response , Motor Strength 5/5 ED Treatment Course - LABORATORY CBC & Chemistry Diagram: 10/18/17 04:05 10/18/17 04:05 Medical Decision Making - Medical Decision Making 47 year old male with low risk chest pain more likely concerning for GERD-like pain rather than cardiac pain as this is post prandial and occasionally burning. EKG normal. CXR normal. Labs WNL and improved with Maalox, Pepcid, and viscous lidocaine. Will discharge patient home with instructions to use his GERD medications and follow up with his PCP. 10/18/17 05:57 *DC/Admit/Observation/Transfer Diagnosis at time of Disposition: GERD (gastroesophageal reflux disease) Qualifiers: Esophagitis presence: esophagitis presence not specified Qualified Code(s): K21.9 - Gastro-esophageal reflux disease without esophagitis - Discharge Dispostion Disposition: HOME Condition at time of disposition: Improved Decision to Admit order: No - Referrals Referrals: Malia Alicea MD [Primary Care Provider] - - Patient Instructions Printed Discharge Instructions: DI for Gastroesophageal Reflux Disease (GERD) Additional Instructions: Please follow up with your PCP for your GERD and chest pain. Please take your GERD medication because this is likely what this is. Please follow up with us in the ED if you have new or worsening symptoms. - Post Discharge Activity
[2017-10-18] MEDS ORDERED: FAMOTIDINE 20 MG/50 ML IVPB 20 MG/50 ML MG IVPB ONE ×2 (04:05→04:14)
[2017-10-18] MEDS ORDERED: MAG HYDROX/AL HYDROX/SIMETH 30 ML UNIT-DOSE CUP PO ONE (04:05)
[2017-10-18] MEDS ORDERED: LIDOCAINE VISCOUS 2% ORAL/TOP 20 ML UNIT-DOSE CUP MM ONE (04:05)
[2017-10-18] MEDS ORDERED: LIDOCAINE VISCOUS 2% ORAL/TOP 20 ML UNIT-DOSE CUP ONE (04:14)
[2017-10-18] MEDS ORDERED: MAG HYDROX/AL HYDROX/SIMETH 30 ML UNIT-DOSE CUP ONE (04:14)
[2017-10-18 04:21] LABS: BASO % 1.1 % (0-2.0); EOS % 3.3 % (0-4.5); HEMATOCRIT 40.2 % (35.4-49); LYMPH % 48.9 % (8-40); MCH 28.5 pg (25.7-33.7); MCHC 32.4 g/dl (32.0-35.9); MEAN CELL VOLUME 88.1 fl (80-96); NEUT % 37.7 % (42.8-82.8); PLATELET COUNT 167 K/MM3 (134-434); RBC 4.56 M/mm3 (4.00-5.60); RDW 15.6 % (11.9-15.9); WHITE BLOOD COUNT 4.1 K/mm3 (4.0-10.0)
--- NOTE | 2017-10-18 04:28 | PDOC ---
Attending Attestation - HPI HPI: 10/18/17 04:28 The patient is a year old male, with a significant past medical history of Asthma, Diabetes, GERD, HTN, HLD, Fatty Liver, who presents to the emergency department with, 4 days of constant, epigastric burning worsening in the RUQ. He reports a headache for the past 2 hours. The patient did not take his Protonix or Pepcid. The patient reports the pain to be similar to that of his GERD. He denies any recent fevers, chills, or dizziness. He denies any recent nausea, vomit, diarrhea or constipation. He denies any recent chest pain or shortness of breath. He denies any recent dysuria, frequency, urgency or hematuria. Allergies: Shellfish derived. Past surgical history: Umbilical hernia repair. Social History: Former smoker. Denies EtOH use and recreational drug use. Primary Care Physician: Dr. Malia Vallecillo <Israel Ashraf - Last Filed: 10/18/17 04:28> - Resident Resident Name: Juma Cotton - ED Attending Attestation I have performed the following: I have examined & evaluated the patient, The case was reviewed & discussed with the resident, I agree w/resident's findings & plan, Exceptions are as noted - Physicial Exam PE: 10/18/17 19:30 Physical Exam General Appearance: Yes: Appropriately Dressed. No: Apparent Distress, Intoxicated HEENT: positive: EOMI, HASEEB, Normal ENT Inspection, Normal Voice, TMs Normal, Pharynx Normal. negative: Pale Conjunctivae, Photophobia, Scleral Icterus (R), Scleral Icterus (L) Neck: positive: Trachea midline, Normal Thyroid, Supple. negative: Tender, Rigid, Carotid bruit, Stridor, Lymphadenopathy (R), Lymphadenopathy (L), Thyromegaly Respiratory/Chest: positive: Lungs Clear, Normal Breath Sounds. negative: Chest Tender, Respiratory Distress, Accessory Muscle Use, Labored Respiration, RES, Crackles, Rales, Rhonchi, Stridor, Wheezing, Dullness Cardiovascular: positive: Regular Rhythm, Regular Rate, S1, S2. negative: Edema , JVD, Murmur, Bradycardia, Tachycardia Vascular Pulses: Dorsalis-Pedis (R): 2+, Doralis-Pedis (L): 2+ Gastrointestinal/Abdominal: positive: Normal Bowel Sounds, Flat, Soft. negative : Tender, Organomegaly, Pulsatile Mass, Increased Bowel Sounds, Decreased BS, Distended, Guarding, Rebound, Hernia, Hepatomegaly, Spleenomegaly Lymphatic: negative: Adenopathy, Tenderness Musculoskeletal: positive: Normal Inspection. negative: CVA Tenderness, Decreased Range of Motion Extremity: positive: Normal Capillary Refill, Normal Inspection, Normal Range of Motion, Pelvis Stable. negative: Tender, Pedal Edema, Swelling, Erythema Integumentary: positive: Normal Color, Dry, Warm. negative: Cyanotic, Erythema , Jaundice, Rash Neurologic: positive: motion picture projectionist II-XII NML intact, Fully Oriented, Alert, Normal Mood/ Affect, Motor Strength 5/5. negative: EOM Palsy, Facial Droop, Sensory Deficit - Medical Decision Making 10/18/17 19:30 Pt treated and released <Good Serrano - Last Filed: 10/18/17 19:31> Attestations - Attestations 10/18/17 04:28 Documentation prepared by Israel Ashraf, acting as medical records clerk for Good Serrano DO. <Israel Ashraf - Last Filed: 10/18/17 04:28>
[2017-10-18 04:47] LABS: ALBUMIN 3.4 g/dl (3.4-5.0); ANION GAP 6 (8-16); BILIRUBIN,TOTAL 0.4 mg/dL (0.2-1.0); BLOOD UREA NITROGEN 17 mg/dL (7-18); CALCIUM 8.9 mg/dL (8.5-10.1); CHLORIDE 108 mmol/L (98-107); CO2 29 mmol/L (21-32); CREATININE 1.4 mg/dL (0.7-1.3); GLUCOSE,RANDOM 128 mg/dL (74-106); POTASSIUM 4.4 mmol/L (3.5-5.1); SGOT/AST 22 U/L (15-37); SGPT/ALT 33 U/L (12-78); SODIUM 143 mmol/L (136-145); TOT PROT 6.7 g/dl (6.4-8.2)
[2017-10-18 04:50] LABS: ALK PHOS 78 U/L (45-117)
[2017-10-18 04:56] LABS: INR 1.07 (0.82-1.09); PROTHROMBIN TIME (PATIENT) 12.1 SEC (9.7-13.0)
[2017-10-18 06:24] VITALS: BP 130/80; PULSE 80; TEMP 98.1
--- NOTE | 2017-10-18 15:01 | EKG ---
Test Reason : Blood Pressure : / mmHG Vent. Rate : 061 BPM Atrial Rate : 061 BPM P-R Int : 174 ms QRS Dur : 106 ms QT Int : 406 ms P-R-T Axes : 054 014 033 degrees QTc Int : 408 ms SINUS RHYTHM WITH PREMATURE ATRIAL COMPLEXES OTHERWISE NORMAL ECG WHEN COMPARED WITH ECG OF 04-JUL-2017 10:24, PREMATURE ATRIAL COMPLEXES ARE NOW PRESENT Confirmed by MD Nancy, Pelon ([id number]) on 10/18/2017 3:01:10 PM Referred By: Confirmed By:Pelon Cruz MD
== END 2017-10-18 06:28 | disposition home or self-care (01) ==
LOC: JER 01:05
PROC: 3E033GC Introduction of Other Therapeutic Substance into Peripheral Vein, Percutaneous Approach (ICD-10-PCS; principal; 2017-10-18)
DX: K21.9 Gastro-esophageal reflux disease without esophagitis (principal); J45.909 Unspecified asthma, uncomplicated; E11.9 Type 2 diabetes mellitus without complications; Z79.84 Long term (current) use of oral hypoglycemic drugs; I10 Essential (primary) hypertension; E78.00 Pure hypercholesterolemia, unspecified; K76.0 Fatty (change of) liver, not elsewhere classified
CPT/HCPCS: 36415; 71046-TC-FY; 80053; 82550; 82553; 83690; 84484; 85025; 85610; 93005; 93010; 96365; 99283-25

== ENCOUNTER 2017-10-20 21:21 | Inpatient (IN) | payer OTHER ==
[2017-10-20] MEDS ORDERED: ASPIRIN 81 MG CHEWABLE TABLETS PO ONE (21:28)
[2017-10-20 21:29] VITALS: BMI 40.8
--- NOTE | 2017-10-20 21:36 | PDOC ---
Rapid Medical Evaluation Chief Complaint: Palpitations Time Seen by Provider: 10/20/17 21:25 Medical Evaluation: Allergies Allergy/AdvReac Type Severity Reaction Status Date / Time shellfish derived Allergy Rash Verified 10/18/17 03:05 c/o palpitations x2 days and now worse with chest pain. deneis NV,abdominal pain PMHX; DM, HTN PMD: Malia Alicea PE: patient alert ox3. + bradycardia, breath sounds clear Plan: patient to the ER for further management of care. Discharge Disposition - Referrals Referrals: Malia Alicea MD [Primary Care Provider] - - Patient Instructions - Post Discharge Activity
--- NOTE | 2017-10-20 21:47 | PDOC ---
Attending Attestation - Resident Resident Name: KunalyvetteFrancesco - ED Attending Attestation I have performed the following: I have examined & evaluated the patient, The case was reviewed & discussed with the resident, I agree w/resident's findings & plan, Exceptions are as noted <Good Serrano - Last Filed: 10/20/17 21:47> - HPI HPI: 10/20/17 21:55 The patient is a 47 year old male with a past medical history Asthma, Diabetes, GERD, HTN, HLD, Fatty Liver, who presents to the emergency department with heart flutter today. The patient reports that he feels like his heart is not beating normally. The patient presented to this Emergency Department 2 days ago with high blood pressure. Today he denies chest pain, shortness of breath, and diaphoresis. He denies history of blood clots and leg swelling. - Physicial Exam PE: 10/20/17 21:56 GENERAL: Well-appearing, well-nourished. No apparent distress. HEENT: Normocephalic, atraumatic. PERRL, EOM intact. CARDIOVASCULAR: (+) Normal S1, S2. Regular rate Irregular rhythm. PULMONARY: Clear to auscultation bilaterally. ABDOMEN: Soft, non-distended, non-tender. EXTREMITIES: Normal ROM in all four extremities. No gross deformities. SKIN: Warm, dry. No rash NEUROLOGICAL: No focal neurological deficits. - Medical Decision Making 10/20/17 21:56 Documentation prepared by Jose Gorman, acting as medical assistant supervisor for Good Serrano DO. <Jose Gorman - Last Filed: 10/20/17 21:56>
[2017-10-20] MEDS ORDERED: ASPIRIN 81 MG CHEWABLE TABLETS ONE (22:07)
[2017-10-20 22:47] LABS: BASO % 0.8 % (0-2.0); EOS % 2.7 % (0-4.5); HEMATOCRIT 41.8 % (35.4-49); HEMOGLOBIN 13.8 GM/dL (11.7-16.9); LYMPH % 45.3 % (8-40); MCH 29.1 pg (25.7-33.7); MCHC 33.1 g/dl (32.0-35.9); MEAN PLT VOLUME 11.2 fl (7.5-11.1); MONO % 11.3 % (3.8-10.2); NEUT % 39.9 % (42.8-82.8); PLATELET COUNT 153 K/MM3 (134-434); RBC 4.75 M/mm3 (4.00-5.60); RDW 15.1 % (11.9-15.9)
--- NOTE | 2017-10-20 22:50 | PDOC ---
History of Present Illness - General Chief Complaint: Palpitations Stated Complaint: Palpitations Time Seen by Provider: 10/20/17 21:25 History Source: Patient Exam Limitations: No Limitations - History of Present Illness Initial Comments: 10/20/17 22:43 Patient is a 47M with history of HTN and DM here today complaining of palpitations starting today. Denies chest pain, but does say that he has a "funny feeling" in his chest. Denies shortness of breath, nausea, vomiting. Denies leg swelling and history of blood clots. Denies recent travel. Denies fevers, chills. Denies prior cardiac issues. Has no de alcoholizer. PCP is Malia Vallecillo. Past History - Past Medical History Allergies/Adverse Reactions: Allergies Allergy/AdvReac Type Severity Reaction Status Date / Time shellfish derived Allergy Rash Verified 10/20/17 21:29 Home Medications: Ambulatory Orders Glipizide [Glipizide ER] 5 mg PO DAILY 09/15/12 Losartan Potassium 50 mg PO DAILY 10/07/16 Anemia: No Asthma: Yes Cancer: No Cardiac Disorders: No CVA: No COPD: No CHF: No DVT: No Dementia: No Diabetes: Yes GI Disorders: No Disorders: No HTN: Yes Hypercholesterolemia: Yes Liver Disease: (FATTY LIVER) Seizures: No Thyroid Disease: No - Surgical History Abdominal Surgery: Yes (umbilcial hernia repair) Appendectomy: No Cardiac Surgery: No Cholecystectomy: No Lung Surgery: No Neurologic Surgery: No Orthopedic Surgery: No - Immunization History Immunization Up to Date: Yes - Suicide/Smoking/Psychosocial Hx Smoking Status: No Smoking History: Never smoked Have you smoked in the past 12 months: No Number of Cigarettes Smoked Daily: 0 If you are a former smoker, when did you quit?: 1994 Information on smoking cessation initiated: No Hx Alcohol Use: No Drug/Substance Use Hx: No Substance Use Type: None Hx Substance Use Treatment: No Review of Systems - Review of Systems Comments:: 10/20/17 22:46 GENERAL/CONSTITUTIONAL: No fever or chills. No weakness. HEAD, EYES, EARS, NOSE AND THROAT: No change in vision. No sore throat. CARDIOVASCULAR: No chest pain or shortness of breath RESPIRATORY: No cough, wheezing, or hemoptysis. GASTROINTESTINAL: No nausea, vomiting, diarrhea or constipation. GENITOURINARY: No dysuria, frequency, or change in urination. MUSCULOSKELETAL: No joint or muscle swelling or pain. No neck or back pain. SKIN: No rash NEUROLOGIC: No headache, vertigo, loss of consciousness, or change in strength/ sensation. ENDOCRINE: No increased thirst. No abnormal weight change HEMATOLOGIC/LYMPHATIC: No anemia, easy bleeding, or history of blood clots. ALLERGIC/IMMUNOLOGIC: No hives or skin allergy. *Physical Exam - Vital Signs Last Vital Signs Temp Pulse Resp BP Pulse Ox 98.9 F 42 L 19 180/91 99 10/20/17 21:26 10/20/17 21:26 10/20/17 21:26 10/20/17 21:26 10/20/17 21:26 - Physical Exam Comments: 10/20/17 22:47 GENERAL: Awake, alert, and fully oriented, in no acute distress HEAD: No signs of trauma, normocephalic, atraumatic EYES: PERRLA, EOMI, sclera anicteric, conjunctiva clear ENT: Auricles normal inspection, hearing grossly normal, nares patent, oropharynx clear without exudates. Moist mucosa NECK: Normal ROM, supple, no lymphadenopathy, JVD, or masses LUNGS: No distress, speaks full sentences, clear to auscultation bilaterally HEART: Irregular rhythm, normal S1 and S2, no murmurs, rubs or gallops, peripheral pulses normal and equal bilaterally. ABDOMEN: Soft, nontender, normoactive bowel sounds. No guarding, no rebound. No masses EXTREMITIES: Normal inspection, Normal range of motion, no edema. No clubbing or cyanosis. NEUROLOGICAL: Cranial nerves II through XII grossly intact. Normal speech, normal gait, no focal sensorimotor deficits SKIN: Warm, Dry, normal turgor, no rashes or lesions noted. ED Treatment Course - LABORATORY CBC & Chemistry Diagram: 10/20/17 22:00 10/20/17 22:00 - RADIOLOGY Radiology Studies Ordered: Category Date Time Status CXRPORT [CHEST X-RAY PORTABLE*] [RAD] Stat Radiology 10/20/17 21:50 Ordered Medical Decision Making - Medical Decision Making 10/20/17 22:47 Patient is 47M with history of HTN and DM here today complaining of palpitations. Vitals notable for HR of 42 at triage. HR in 90s during my exam with bigeminy on the monitor. EKG shows sinus rhythm with PACs in bigeminy pattern. No st elevations/depressions. Normal axis. Normal intervals. Will do cardiac workup and admit to tele. *DC/Admit/Observation/Transfer Diagnosis at time of Disposition: Irregular heart beat - Discharge Dispostion Condition at time of disposition: Stable Decision to Admit order: Yes - Referrals Referrals: Malia Alicea MD [Primary Care Provider] - - Patient Instructions - Post Discharge Activity
[2017-10-20 22:58] LABS: INR 1.07 (0.82-1.09); PROTHROMBIN TIME (PATIENT) 12.1 SEC (9.7-13.0)
[2017-10-20 23:07] LABS: ALBUMIN 3.6 g/dl (3.4-5.0); ANION GAP 6 (8-16); BLOOD UREA NITROGEN 16 mg/dL (7-18); CALCIUM 8.8 mg/dL (8.5-10.1); CHLORIDE 105 mmol/L (98-107); CO2 30 mmol/L (21-32); CREATININE 1.5 mg/dL (0.7-1.3); GLUCOSE,RANDOM 91 mg/dL (74-106); MAGNESIUM 2.4 mg/dL (1.8-2.4); POTASSIUM 4.4 mmol/L (3.5-5.1); SGOT/AST 27 U/L (15-37); SGPT/ALT 33 U/L (12-78); SODIUM 141 mmol/L (136-145)
[2017-10-20 23:11] LABS: ALK PHOS 75 U/L (45-117); BILIRUBIN,TOTAL 0.7 mg/dL (0.2-1.0); TOT PROT 7.1 g/dl (6.4-8.2)
--- NOTE | 2017-10-21 02:16 | HP ---
CHIEF COMPLAINT: palpitations PCP: Dr. Malia Alicea HISTORY OF PRESENT ILLNESS: The patient is a 47 yo m w/ PMH HTN, DM who comes into the ED c/o a 3 week history of recurrent episodes of a "funny feeling" in his chest. The patient associates this feeling with a sensation of his heart racing. The patient's symptoms are exacerbated while the patient is at work, where he does a lot of heavy lifting. Rest relieves his symptoms. Today, his episode of palpitations lasted longer than usual, prompting him to present for evaluation. Patient denies chest pain, SOB, BARILLAS, changes in vision. In the ED, the patient was found to have an EKG with a bigeminal pattern not present on previous EKGs. Troponin was negative x1. PAST MEDICAL HISTORY: see HPI PAST SURGICAL HISTORY: Hernia repair vocal cord polyp removal Social History: Smoking: former smoker, quit 1994 Alcohol: denies Drugs: denies Family History: Mother of a heart attack at 69 years old. Allergies shellfish derived Allergy (Verified 10/20/17 21:29) Rash HOME MEDICATIONS: Home Medications Medication Instructions Recorded Glipizide [Glipizide ER] 5 mg PO DAILY 09/15/12 Losartan Potassium 50 mg PO DAILY 10/07/16 REVIEW OF SYSTEMS CONSTITUTIONAL: Absent: fever, chills, diaphoresis, generalized weakness, malaise, loss of appetite, weight change HEENT: Absent: rhinorrhea, nasal congestion, throat pain, throat swelling, difficulty swallowing, mouth swelling, ear pain, eye pain, visual changes CARDIOVASCULAR: Absent: chest pain, syncope, lightheadedness, peripheral edema RESPIRATORY: Absent: cough, shortness of breath, dyspnea with exertion, orthopnea, wheezing, stridor, hemoptysis GASTROINTESTINAL: Absent: abdominal pain, abdominal distension, nausea, vomiting, diarrhea, constipation, melena, hematochezia GENITOURINARY: Absent: dysuria, frequency, urgency, hesitancy, hematuria, flank pain, genital pain MUSCULOSKELETAL: Absent: myalgia, arthralgia, joint swelling, back pain, neck pain SKIN: Absent: rash, itching, pallor HEMATOLOGIC/IMMUNOLOGIC: Absent: easy bleeding, easy bruising, lymphadenopathy, frequent infections ENDOCRINE: Absent: unexplained weight gain, unexplained weight loss, heat intolerance, cold intolerance NEUROLOGIC: Absent: headache, focal weakness or paresthesias, dizziness, unsteady gait, seizure, mental status changes, bladder or bowel incontinence PSYCHIATRIC: Absent: anxiety, depression, suicidal or homicidal ideation, hallucinations. PHYSICAL EXAMINATION Vital Signs - 24 hr 10/20/17 21:26 Temperature 98.9 F Pulse Rate 42 L Respiratory 19 Rate Blood Pressure 180/91 O2 Sat by Pulse 99 Oximetry (%) GENERAL: Awake, alert, and fully oriented, in no acute distress. HEAD: Normal with no signs of trauma. EYES: Pupils equal, round and reactive to light, extraocular movements intact, sclera anicteric, conjunctiva clear. No lid lag. EARS, NOSE, THROAT: Ears normal, nares patent, oropharynx clear without exudates. Moist mucous membranes. NECK: Normal range of motion, supple without lymphadenopathy, JVD, or masses. LUNGS: Breath sounds equal, clear to auscultation bilaterally. No wheezes, and no crackles. No accessory muscle use. HEART: Regular rate and rhythm with ectopic beats, normal S1 and S2 without murmur, rub or gallop. ABDOMEN: Soft, nontender, not distended, normoactive bowel sounds, no guarding, no rebound, no masses. No hepatomegaly or splenomegaly. LOWER EXTREMITIES: 2+ pulses, warm, well-perfused. No calf tenderness. No peripheral edema. NEUROLOGICAL: Cranial nerves II-X intact. Normal speech. strength 5/5 in all 4 extremities. PSYCHIATRIC: Cooperative. Good eye contact. Appropriate mood and affect. SKIN: Warm, dry, normal turgor, no rashes or lesions noted, normal capillary refill. Laboratory Results - last 24 hr 10/20/17 10/20/17 10/20/17 22:00 22:00 22:00 WBC 4.0 RBC 4.75 Hgb 13.8 Hct 41.8 MCV 88.0 MCH 29.1 MCHC 33.1 RDW 15.1 Plt Count 153 MPV 11.2 H Absolute Neuts (auto) 1.6 Neutrophils % 39.9 L Lymphocytes % 45.3 H Monocytes % 11.3 H Eosinophils % 2.7 Basophils % 0.8 Nucleated RBC % 0 PT with INR 12.10 INR 1.07 D-Dimer 301 Sodium 141 Potassium 4.4 Chloride 105 Carbon Dioxide 30 Anion Gap 6 L BUN 16 Creatinine 1.5 H Creat Clearance w eGFR 49.74 Random Glucose 91 D Calcium 8.8 Magnesium 2.4 Total Bilirubin 0.7 D AST 27 D ALT 33 Alkaline Phosphatase 75 Creatine Kinase 683 H Creatine Kinase Index 0.7 CK-MB (CK-2) 5.13 H Troponin I < 0.02 Total Protein 7.1 Albumin 3.6 ASSESSMENT/PLAN: The patient is a 47 yo m w/ PMH HTN, DM who comes into the ED c/o palpitations for the past 3 weeks and found to have bigeminy and ectopic beats on EKG #new onset arrhythmia; etiology unclear -serial EKGs -trend trop -cardiology consult -echo in AM -lipid profile -tele monitoring #FEN -no fluids indicated -lytes WNL -diabetic diet #prophy -heparin SQ 5k units TID #Dispo -admit tele Visit type - Emergency Visit Emergency Visit: Yes ED Registration Date: 10/21/17 Care time: The patient presented to the Emergency Department on the above date and was hospitalized for further evaluation of their emergent condition. - New Patient This patient is new to me today: Yes Date on this admission: 10/21/17 - Critical Care Critical Care patient: No Hospitalist Screening - Colonoscopy Questionnaire Colonoscopy Questionnaire: Colonoscopy Questionnaire - Patient: 50 - 75 years old and never had a screening colonoscopy: Unknown History of colon or rectal polyps, or CA: Unknown History of IBD, Crohn's disease or UC: Unknown History of abdominal radiation therapy as a child: Unknown - Relative: 1 with colon or rectal CA, or polyps at age 60 or younger: Unknown Colon or rectal CA diagnosed at age 45 or younger: Unknown Multiple relatives with colon or rectal CA: Unknown - Outcome: Screening Result: Negative Screen
--- NOTE | 2017-10-21 03:10 | PN ---
Teaching Attending Note Name of Resident: Francois Pearson ATTENDING PHYSICIAN STATEMENT I saw and evaluated the patient. I reviewed the resident's note and discussed the case with the resident. I agree with the resident's findings and plan as documented. SUBJECTIVE: Patient is a 47 year old man with a past medical history of Asthma, Diabetes, GERD, HTN, HLD, and Fatty Liver, who presents to the ER with heart flutter today. The patient reports that he feels like his heart is not beating normally. He was in the Emergency Department 2 days ago with high blood pressure. Today he denies chest pain, shortness of breath, and diaphoresis. He denies history of blood clots and leg swelling. OBJECTIVE: Alert; obese and in no acute distress Vital Signs Period Temp Pulse Resp BP Sys/Bingham Pulse Ox Last 24 Hr 98.9 F 42 19 180/91 99 HEENT: No Jaundice, eye redness or discharge, PERRLA, EOMI. Normocephalic, atraumatic. External ears are normal and hearing is grossly intact. No nasal discharge. Neck: Supple, nontender. No palpable adenopathy or thyromegaly. No JVD Chest: Good effort. Clear to auscultation and percussion. Heart: Regular with ectopics. No S3, rub or murmur Abdomen: Not distended, soft, nontender and no HSM. No rebound or guarding. Normoactive bowel sounds. Ext: Peripheral pulses intact. No leg edema. Skin: Warm and dry. No petechiae, rash or ecchymosis. Neuro: Alert. Oriented x3. CN 2-12 grossly intact. Sensation grossly intact in all four extremities and DTR are symmetric. Current Medications Generic Name Dose Route Start Last Admin Trade Name Freq PRN Reason Stop Dose Admin Heparin Sodium (Porcine) 5,000 unit 10/21/17 06:00 Heparin - SQ TID [facility] Home Medications Medication Instructions Recorded Glipizide [Glipizide ER] 5 mg PO DAILY 09/15/12 Losartan Potassium 50 mg PO DAILY 10/07/16 Abnormal Lab Results 10/20/17 10/20/17 22:00 22:00 MPV 11.2 H Neutrophils % 39.9 L Lymphocytes % 45.3 H Monocytes % 11.3 H Anion Gap 6 L Creatinine 1.5 H Creatine Kinase 683 H CK-MB (CK-2) 5.13 H ASSESSMENT AND PLAN: 1. Palpitations - Patient has multiple risk factors for ACS. Initial EKG showed bigeminy. Will rule out ACS, get ECHO and possibly outpatient holter monitoring. 2. Uncontrolled Hypertension - Raise losartan to 100 mg po q am and add amlodipine 5 mg po q pm. 3. DVT prophylaxis - Heparin 5000u sq tid. 4. Advance directives - Full code
[2017-10-21] MEDS ORDERED: HEPARIN NA (PORCINE) 5,000 UNITS/ML 1ML VIAL SQ SCH (06:00)
[2017-10-21 06:32] VITALS: TEMP 98
[2017-10-21 07:21] LABS: HEMATOCRIT 39.8 % (35.4-49); HEMOGLOBIN 13.2 GM/dL (11.7-16.9); MCH 28.9 pg (25.7-33.7); MCHC 33.1 g/dl (32.0-35.9); MEAN CELL VOLUME 87.3 fl (80-96); MEAN PLT VOLUME 10.6 fl (7.5-11.1); PLATELET COUNT 133 K/MM3 (134-434); RBC 4.56 M/mm3 (4.00-5.60); RDW 15.1 % (11.9-15.9); WHITE BLOOD COUNT 3.4 K/mm3 (4.0-10.0)
[2017-10-21 07:27] LABS: INR 1.14 (0.82-1.09); PROTHROMBIN TIME (PATIENT) 12.9 SEC (9.7-13.0)
[2017-10-21 07:29] LABS: ACTIVATED PTT 30.8 SECONDS (25.2-36.5)
--- NOTE | 2017-10-21 08:48 | EKG ---
Test Reason : Blood Pressure : / mmHG Vent. Rate : 090 BPM Atrial Rate : 090 BPM P-R Int : 142 ms QRS Dur : 094 ms QT Int : 352 ms P-R-T Axes : 051 -01 049 degrees QTc Int : 430 ms SINUS RHYTHM WITH PREMATURE ATRIAL COMPLEXES IN A PATTERN OF BIGEMINY POSSIBLE LEFT ATRIAL ENLARGEMENT WHEN COMPARED WITH ECG OF 18-OCT-2017 03:56, NO SIGNIFICANT CHANGE WAS FOUND Confirmed by JULIEN RIVERA MD ([id number]) on 10/21/2017 8:48:09 AM Referred By: Confirmed By:JULIEN RIVERA MD
[2017-10-21 09:58] LABS: ALBUMIN 3.5 g/dl (3.4-5.0); ANION GAP 10 (8-16); BLOOD UREA NITROGEN 14 mg/dL (7-18); CALCIUM 8.7 mg/dL (8.5-10.1); CHLORIDE 106 mmol/L (98-107); CO2 26 mmol/L (21-32); CREATININE 1.2 mg/dL (0.7-1.3); GLUCOSE,RANDOM 90 mg/dL (74-106); MAGNESIUM 2.4 mg/dL (1.8-2.4); POTASSIUM 4.3 mmol/L (3.5-5.1); SGOT/AST 22 U/L (15-37); SGPT/ALT 30 U/L (12-78); SODIUM 142 mmol/L (136-145)
[2017-10-21 09:59] LABS: ALK PHOS 79 U/L (45-117); BILIRUBIN,TOTAL 0.9 mg/dL (0.2-1.0); TOT PROT 6.8 g/dl (6.4-8.2)
[2017-10-21] MEDS ORDERED: LOSARTAN POTASSIUM 50 MG TABLET (FP) PO SCH ×2 (10:00→12:15)
[2017-10-21] MEDS ORDERED: amLODIPine BESYLATE 5 MG TABLET (FP) PO SCH (10:00)
[2017-10-21] MEDS ORDERED: PT OWN MED DRAWER 7, Y5N ONE (10:07)
[2017-10-21 11:02] LABS: CHOLESTEROL 146 mg/dL (50-200); TRIGLYCERIDES 62 mg/dL (35-160)
[2017-10-21 11:04] VITALS: BP 138/103; PULSE 71
[2017-10-21 11:04] LABS: HDL CHOLESTEROL 55 mg/dL (40-60)
--- NOTE | 2017-10-21 12:24 | CON.CARD ---
Cardiology Consult (text) - Consultation Consultation Note: cc: palps hpi: 47 m hx htn, hld, dm here with palps. Past few weeks noticing palps. Feel like fast, extra beats. Last for seconds to minutes. No associated sxs. No hx palps. No hx hrt dz. No cp,sob, dizzy, loc, pnd, orthopnea, le edema. Feeling well now, no palps currently. pmh: per hpi psh: hernia repair fam: mom mi 69 social: ex tob ros: per hpi; no nvd fever cough chavez vision changes muscel pains gib hematuria dysuria meds: Ambulatory Orders Glipizide [Glipizide ER] 5 mg PO DAILY 09/15/12 Losartan Potassium 50 mg PO DAILY 10/07/16 pe: Vital Signs Period Temp Pulse Resp BP Sys/Bingham Pulse Ox Last 24 Hr 98.0 F-98.9 F 42-72 16-22 138-180/91-103 97-99 nad no jvd rrr s1s2 no mrg cta bl nl eff aaox3 no le e/c/c abd nt nd pos bs no jaundice diaphoresis pos dp pt no carotid bruits Laboratory Last Values WBC 3.4 K/mm3 (4.0-10.0) L 10/21/17 06:20 RBC 4.56 M/mm3 (4.00-5.60) 10/21/17 06:20 Hgb 13.2 GM/dL (11.7-16.9) 10/21/17 06:20 Hct 39.8 % (35.4-49) 10/21/17 06:20 MCV 87.3 fl (80-96) 10/21/17 06:20 MCH 28.9 pg (25.7-33.7) 10/21/17 06:20 MCHC 33.1 g/dl (32.0-35.9) 10/21/17 06:20 RDW 15.1 % (11.9-15.9) 10/21/17 06:20 Plt Count 133 K/MM3 (134-434) L 10/21/17 06:20 MPV 10.6 fl (7.5-11.1) 10/21/17 06:20 Absolute Neuts (auto) 1.6 # 10/20/17 22:00 Neutrophils % 39.9 % (42.8-82.8) L 10/20/17 22:00 Lymphocytes % 45.3 % (8-40) H 10/20/17 22:00 Monocytes % 11.3 % (3.8-10.2) H 10/20/17 22:00 Eosinophils % 2.7 % (0-4.5) 10/20/17 22:00 Basophils % 0.8 % (0-2.0) 10/20/17 22:00 Nucleated RBC % 0 % (0-0) 10/20/17 22:00 PT with INR 12.90 SEC (9.7-13.0) 10/21/17 06:20 INR 1.14 (0.82-1.09) 10/21/17 06:20 PTT (Actin FS) 30.8 SECONDS (25.2-36.5) 10/21/17 06:20 D-Dimer 301 ng/ml (0-500) 10/20/17 22:00 Sodium 142 mmol/L (136-145) 10/21/17 06:20 Potassium 4.3 mmol/L (3.5-5.1) 10/21/17 06:20 Chloride 106 mmol/L (98-107) 10/21/17 06:20 Carbon Dioxide 26 mmol/L (21-32) 10/21/17 06:20 Anion Gap 10 (8-16) 10/21/17 06:20 BUN 14 mg/dL (7-18) 10/21/17 06:20 Creatinine 1.2 mg/dL (0.7-1.3) 10/21/17 06:20 Creat Clearance w eGFR > 60 (>60) 10/21/17 06:20 Random Glucose 90 mg/dL (74-106) 10/21/17 06:20 Calcium 8.7 mg/dL (8.5-10.1) 10/21/17 06:20 Phosphorus 4.0 mg/dL (2.5-4.9) 10/21/17 06:20 Magnesium 2.4 mg/dL (1.8-2.4) 10/21/17 06:20 Total Bilirubin 0.9 mg/dL (0.2-1.0) D 10/21/17 06:20 AST 22 U/L (15-37) 10/21/17 06:20 ALT 30 U/L (12-78) 10/21/17 06:20 Alkaline Phosphatase 79 U/L (45-117) 10/21/17 06:20 Creatine Kinase 683 IU/L (39-308) H 10/20/17 22:00 Creatine Kinase Index 0.7 % (0.0-5.0) 10/20/17 22:00 CK-MB (CK-2) 5.13 ng/mL (0.5-3.6) H 10/20/17 22:00 Troponin I < 0.02 ng/ml (0.00-0.05) 10/21/17 06:20 Total Protein 6.8 g/dl (6.4-8.2) 10/21/17 06:20 Albumin 3.5 g/dl (3.4-5.0) 10/21/17 06:20 Triglycerides 62 mg/dL (35-160) D 10/21/17 06:20 Cholesterol 146 mg/dL (50-200) 10/21/17 06:20 Total LDL Cholesterol 85 mg/dL (5-100) 10/21/17 06:20 HDL Cholesterol 55 mg/dL (40-60) 10/21/17 06:20 tele: sr cxr: clear lungs ecg: sr, pacs, nl intervals, no ischemic changes a/p: 47 m hx htn, hld, dm here with palps. palps, abnl ecg/pacs: -palps seem to correlate with pacs, have resolved now on tele and palps gone as well -likely a benign condition -check tsh, echo -pt instructed to avoid excess caffeine -if echo benign then ok for dc from cardiac pov with outpt f/u 2-3 weeks htn: -cont cozaar 50 and norvasc 5 hld: -stable, pt thinks he is on statin, outpt f/u
--- NOTE | 2017-10-21 13:26 | DS ---
Physical Examination Vital Signs: Vital Signs Temperature 98.0 F 10/21/17 06:32 Pulse Rate 71 10/21/17 10:28 Respiratory Rate 16 10/21/17 10:28 Blood Pressure 138/103 10/21/17 10:28 O2 Sat by Pulse Oximetry (%) 97 10/21/17 06:32 Findings/Remarks: patient seen and examined in the emergency room. Comfortable Alert and awake denies any chest pain or shortness of breath Wants to go home today Chart reviewed Clear by cardiology to discharge Echocardiogram also reviewed--- concern of bicuspid valve ? Moderate aortic root dilatation Normal LV function Constitutional: Yes: No Distress, Calm Eyes: Yes: Conjunctiva Clear Neck: Yes: Supple Cardiovascular: Yes: Regular Rate and Rhythm Respiratory: Yes: CTA Bilaterally Gastrointestinal: Yes: Soft Edema: No Neurological: Yes: Alert Psychiatric: Yes: Alert Labs: CBC, BMP 10/21/17 06:20 10/21/17 06:20 Discharge Summary Reason For Visit: IRREGULAR HEART RHYTHM Current Active Problems Irregular heart beat (Acute) Hospital Course: patient with past medical history as documented--admitted for palpitations Workup negative cardiology followed Echocardiogram as mentioned above Will discharge home today Medications reconciled I also added beta evy Patient strongly advised to follow up in office in 2 weeks as well as with cardiology Patient in agreement Discussed with nursing staff also Condition: Stable - Instructions Referrals: Malia Alicea MD [Primary Care Provider] - Disposition: HOME - Home Medications Comprehensive Discharge Medication List: Ambulatory Orders Glipizide [Glipizide ER] 5 mg PO DAILY 09/15/12 Amlodipine Besylate [Norvasc -] 10 mg PO DAILY 30 Days #60 tablet 10/21/17 Losartan Potassium 100 mg PO DAILY #60 tab 10/21/17 Metoprolol Succinate [Toprol Xl -] 25 mg PO DAILY #30 tab.sr.24h 10/21/17
--- NOTE | 2017-10-24 22:06 | EKG ---
Test Reason : Blood Pressure : / mmHG Vent. Rate : 058 BPM Atrial Rate : 058 BPM P-R Int : 172 ms QRS Dur : 090 ms QT Int : 420 ms P-R-T Axes : 042 -13 027 degrees QTc Int : 412 ms SINUS BRADYCARDIA OTHERWISE NORMAL ECG WHEN COMPARED WITH ECG OF 20-OCT-2017 21:36, PREMATURE ATRIAL COMPLEXES ARE NO LONGER PRESENT VENT. RATE HAS DECREASED BY 32 BPM Confirmed by FERMIN LOUISE, PIERRE ([id number]) on 10/24/2017 10:05:48 PM Referred By: Confirmed By:PIERRE CHRISTENSEN MD
== END 2017-10-21 15:45 | disposition home or self-care (01) | DRG 201 ==
LOC: JER 21:21 → JERBED 10-21 01:04
PROVIDERS: ADMIT Internal Medicine; ATTEND Internal Medicine
DX: I49.8 Other specified cardiac arrhythmias (principal); K76.0 Fatty (change of) liver, not elsewhere classified; Z68.41 Body mass index [BMI] 40.0-44.9, adult; E11.9 Type 2 diabetes mellitus without complications; I10 Essential (primary) hypertension; E78.5 Hyperlipidemia, unspecified; J45.909 Unspecified asthma, uncomplicated; K21.9 Gastro-esophageal reflux disease without esophagitis; Z87.891 Personal history of nicotine dependence; E66.9 Obesity, unspecified; Z79.84 Long term (current) use of oral hypoglycemic drugs
CPT/HCPCS: 36415; 71045-TC-FY; 80053; 80061; 82550; 82553; 83721; 83735; 84100; 84443; 84484; 85025; 85027; 85379; 85610; 85730; 93005; 93010; 93306-TC; 99283-25

== ENCOUNTER 2017-10-22 00:52 | Inpatient (IN) | payer OTHER ==
[2017-10-22 01:24] VITALS: BMI 40.8
[2017-10-22 02:01] LABS: BASO % 0.4 % (0-2.0); EOS % 3.2 % (0-4.5); HEMATOCRIT 42.5 % (35.4-49); HEMOGLOBIN 13.9 GM/dL (11.7-16.9); LYMPH % 36.7 % (8-40); MCH 28.7 pg (25.7-33.7); MCHC 32.7 g/dl (32.0-35.9); MEAN CELL VOLUME 87.8 fl (80-96); MEAN PLT VOLUME 10.9 fl (7.5-11.1); MONO % 8.8 % (3.8-10.2); NEUT % 50.9 % (42.8-82.8); PLATELET COUNT 148 K/MM3 (134-434); RBC 4.84 M/mm3 (4.00-5.60); RDW 15.1 % (11.9-15.9); WHITE BLOOD COUNT 4.9 K/mm3 (4.0-10.0)
[2017-10-22] MEDS ORDERED: FAMOTIDINE 20 MG/50 ML IVPB 20 MG/50 ML MG IVPB ONE ×4 (02:13→23:40)
[2017-10-22] MEDS ORDERED: ONDANSETRON 4 MG/2 ML VIAL IVPUSH ONE (02:13)
[2017-10-22 02:16] LABS: INR 1.12 (0.82-1.09); PROTHROMBIN TIME (PATIENT) 12.6 SEC (9.7-13.0)
[2017-10-22] MEDS ORDERED: ONDANSETRON 4 MG/2 ML VIAL ONE (02:18)
[2017-10-22 02:27] LABS: ALBUMIN 3.5 g/dl (3.4-5.0); ANION GAP 9 (8-16); BILIRUBIN,TOTAL 0.7 mg/dL (0.2-1.0); BLOOD UREA NITROGEN 14 mg/dL (7-18); CALCIUM 8.7 mg/dL (8.5-10.1); CHLORIDE 103 mmol/L (98-107); CO2 28 mmol/L (21-32); CREATININE 1.4 mg/dL (0.7-1.3); GLUCOSE,RANDOM 121 mg/dL (74-106); MAGNESIUM 2.1 mg/dL (1.8-2.4); POTASSIUM 3.8 mmol/L (3.5-5.1); SGOT/AST 21 U/L (15-37); SGPT/ALT 30 U/L (12-78); SODIUM 140 mmol/L (136-145); TOT PROT 6.7 g/dl (6.4-8.2)
[2017-10-22 02:30] LABS: ALK PHOS 76 U/L (45-117)
--- NOTE | 2017-10-22 02:52 | PDOC ---
History of Present Illness - General Chief Complaint: Syncope/Near Syncope Stated Complaint: FAINTED Time Seen by Provider: 10/22/17 01:09 History Source: Patient Exam Limitations: No Limitations - History of Present Illness Initial Comments: 10/22/17 02:43 Patient is a 47M with history of HTN and DM here today complaining of syncope this evening. He states that he was urinating when he lost consciousness. Event was witness by his . Denies head or neck trauma. Denies headache and neck pain. Patient states that he was confused and weak after but returned to baseline after a few minutes. Denies chest pain and shortness of breath, but states that he has some epigastric discomfort. Denies fevers, chills, vomiting. Past History - Past Medical History Allergies/Adverse Reactions: Allergies Allergy/AdvReac Type Severity Reaction Status Date / Time shellfish derived Allergy Rash Verified 10/20/17 21:29 Home Medications: Ambulatory Orders Glipizide [Glipizide ER] 5 mg PO DAILY 09/15/12 Amlodipine Besylate [Norvasc -] 10 mg PO DAILY 30 Days #60 tablet 10/21/17 Losartan Potassium 100 mg PO DAILY #60 tab 10/21/17 Metoprolol Succinate [Toprol Xl -] 25 mg PO DAILY #30 tab.sr.24h 10/21/17 Anemia: No Asthma: Yes Cancer: No Cardiac Disorders: No CVA: No COPD: No CHF: No DVT: No Dementia: No Diabetes: Yes GI Disorders: No Disorders: No HTN: Yes Hypercholesterolemia: Yes Liver Disease: (FATTY LIVER) Seizures: No Thyroid Disease: No - Surgical History Abdominal Surgery: Yes (umbilcial hernia repair) Appendectomy: No Cardiac Surgery: No Cholecystectomy: No Lung Surgery: No Neurologic Surgery: No Orthopedic Surgery: No - Immunization History Immunization Up to Date: Yes - Suicide/Smoking/Psychosocial Hx Smoking Status: No Smoking History: Never smoked Have you smoked in the past 12 months: No Number of Cigarettes Smoked Daily: 0 If you are a former smoker, when did you quit?: 1994 Information on smoking cessation initiated: No Hx Alcohol Use: No Drug/Substance Use Hx: No Substance Use Type: None Hx Substance Use Treatment: No Review of Systems - Review of Systems Comments:: 10/22/17 02:52 GENERAL/CONSTITUTIONAL: No fever or chills. No weakness. HEAD, EYES, EARS, NOSE AND THROAT: No change in vision. No sore throat. CARDIOVASCULAR: No chest pain or shortness of breath RESPIRATORY: No cough, wheezing, or hemoptysis. GASTROINTESTINAL: No nausea, vomiting, diarrhea or constipation. GENITOURINARY: No dysuria, frequency, or change in urination. MUSCULOSKELETAL: No joint or muscle swelling or pain. No neck or back pain. SKIN: No rash NEUROLOGIC: No headache, vertigo, or change in strength/sensation. ENDOCRINE: No increased thirst. No abnormal weight change HEMATOLOGIC/LYMPHATIC: No anemia, easy bleeding, or history of blood clots. ALLERGIC/IMMUNOLOGIC: No hives or skin allergy. *Physical Exam - Vital Signs Last Vital Signs Temp Pulse Resp BP Pulse Ox 97.5 F L 58 L 18 151/75 100 10/22/17 01:06 10/22/17 01:06 10/22/17 01:06 10/22/17 01:06 10/22/17 01:06 - Physical Exam Comments: 10/22/17 02:52 GENERAL: Awake, alert, and fully oriented, in moderate distress HEAD: No signs of trauma, normocephalic, atraumatic EYES: PERRLA, EOMI, sclera anicteric, conjunctiva clear ENT: Auricles normal inspection, hearing grossly normal, nares patent, oropharynx clear without exudates. Moist mucosa NECK: Normal ROM, supple, no lymphadenopathy, JVD, or masses LUNGS: No distress, speaks full sentences, clear to auscultation bilaterally HEART: Irregular rhythm, normal S1 and S2, no murmurs, rubs or gallops ABDOMEN: Soft, nontender, normoactive bowel sounds. No guarding, no rebound. No masses EXTREMITIES: Normal inspection, Normal range of motion, no edema. No clubbing or cyanosis. NEUROLOGICAL: Cranial nerves II through XII grossly intact. Normal speech, no focal sensorimotor deficits SKIN: Warm, Dry, normal turgor, no rashes or lesions noted. ED Treatment Course - LABORATORY CBC & Chemistry Diagram: 10/22/17 01:52 10/22/17 01:52 - ADDITIONAL ORDERS Additional order review: Laboratory Results 10/22/17 10/22/17 01:52 01:52 PT with INR 12.60 INR 1.12 Sodium 140 Potassium 3.8 Chloride 103 Carbon Dioxide 28 Anion Gap 9 BUN 14 Creatinine 1.4 H Creat Clearance w eGFR 53.86 Random Glucose 121 H D Calcium 8.7 Magnesium 2.1 Total Bilirubin 0.7 AST 21 ALT 30 Alkaline Phosphatase 76 Creatine Kinase 421 H Troponin I < 0.02 Total Protein 6.7 Albumin 3.5 10/22/17 01:52 RBC 4.84 MCV 87.8 MCHC 32.7 RDW 15.1 MPV 10.9 Neutrophils % 50.9 D Lymphocytes % 36.7 Monocytes % 8.8 Eosinophils % 3.2 Basophils % 0.4 - RADIOLOGY Radiology Studies Ordered: Category Date Time Status CHEST X-RAY PORTABLE* [RAD] Stat Radiology 10/22/17 01:29 Taken Medical Decision Making - Medical Decision Making 10/22/17 02:53 Patient 47M history of HTN and DM here today with syncope. Vital signs notable for discrepancy between pulse measured by pulse ox and EKG. Pulse ox shows HR that drops into 20s periodically, patient feels poorly at this time. Meanwhile, monitor shows rate in 70s. Patient has cardiac arrhythmia, will initiate cardiac workup. EKG shows sinus rhythm with multiple PACs, similar to yesterday's EKG. Rate 72. No st eleevations/depressions. Intervals normal. Irregular beat pattern. CBC, CMP reassuring, troponin negative. CXR shows no acute cardiopulmonary process. Admitted to tele via [facility]. *DC/Admit/Observation/Transfer Diagnosis at time of Disposition: Irregular heart beat - Discharge Dispostion Condition at time of disposition: Stable Decision to Admit order: Yes - Referrals Referrals: Malia Alicea MD [Primary Care Provider] - - Patient Instructions - Post Discharge Activity
--- NOTE | 2017-10-22 03:07 | PDOC ---
Attending Attestation - Resident Resident Name: Francesco Bourgeois - ED Attending Attestation I have performed the following: I have examined & evaluated the patient, The case was reviewed & discussed with the resident, I agree w/resident's findings & plan, Exceptions are as noted - Medical Decision Making 10/22/17 03:04 47yoM presnets w/ syncopal event. Pt has had progressive symptoms over the course of this week and this is third ED presentation--> initially feeling palps /epig pain, then presented w/ presyncope in addition to palps/epig pain and now presents w/ acutal syncope w/ palps and epig pain. On eval, pt w/ mismatch between pulse and electrical HR. PACs are not conducting , pulse rate down in 20's when pt is complaining of epig pain/nausea/palps and feeling presyncopal. c/o symptoms resolves when pulse rate returns to normal. - re-admit. - labs - cardaic moniotr - ekg - hold metoprolol/amlodipine until further cards evaluation <Cynthia Calderon - Last Filed: 10/22/17 03:04> - HPI HPI: 10/22/17 06:50 Patient is a 47 year old male with a significant past medical history of HTN, DM , who presents to the ED with complaints of syncopal episode that occurred just prior to ED arrival. As per patient's , patient woke up from sleep tonight to use the bathroom, and noticed his urine was a dark color as well as had a slight odor. She reports patient then proceeded to check his blood sugar when he suddenly lost consciousness, causing him fall off of the bed onto the floor. Patient's reports patient appeared to be gasping before he regained consciousness and became confused. She reports patient was able to ambulate immediately after the episode, but brought him into the ED for further evaluation. Patient reports coming into the ED x2 times this week for palpitations and nausea. During exam, pt is having episdoes of LUQ pain and palpitations specifically when his pulse rate drops down very low (<30). Electrical HR remains in the 70s. PACs are not generating pulses. Likely symptommatic bradycardia. Denies chest pain, Sob. Denies nausea, vomiting. Denies fevers chills. Denies contact with sick individuals, out of state travelling. Denies head trauma, change in vision. Denies dysuria, hematuria, constipation, diarrhea. Denies any other symptoms. Allergies: Shell fish. Social history: Lives with . No smoking. No alcohol. Surgical history: None PMD: Dr. Malia Alicea. - Physicial Exam PE: 10/22/17 06:50 General Physical Exam: NAD EOMI, HASEEB MMM, OP WNL NCAT, no midline cervical tenderness Irregular rate. RR, nl s1/s2, no m/r/g CTABL, no w/r/r Soft, NTND No edema, WWP, no rash Neuro grossly intact, gait WNL, moving all 4 A&O x 3, mood/affect WNL. <Dariel Medina - Last Filed: 10/22/17 06:50>
--- NOTE | 2017-10-22 03:24 | HP ---
CHIEF COMPLAINT: Syncope, Lightheadedness, Epigastric pain, Nausea PCP: Dr. Malia Vallecillo HISTORY OF PRESENT ILLNESS: 47 y/o man PMH of HTN, HLD, DM, GERD, Asthma, Fatty Liver. Who presents to the ED with syncope, epigastric pain, nausea, lightheadedness x last pm. Patient reports while ambulating to the bathroom, he began to feel dizzy and lightheaded. He reports sitting on the toilet and was told by his that he passed out. Patient denies falling to the ground or hitting his head. Patient was seen here 2 prior times: #1 palpitations, #2 CP/palpitations. Patient was admitted on 10/20-10/21 for CP, Palpitations. Patient reports starting a new medication, metoprolol succinate. Patient denies CP, palpitations. Patient denies fever, chills, cough, SOB, diarrhea, constipation, dysuria. 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 Family History: Mother: DM, [place], age 69 Allergies shellfish derived Allergy (Verified 10/20/17 21:29) Rash HOME MEDICATIONS: Home Medications Medication Instructions Recorded Glipizide [Glipizide ER] 5 mg PO DAILY 09/15/12 Amlodipine Besylate [Norvasc -] 10 mg PO DAILY 30 Days #60 tablet 10/21/17 Losartan Potassium 100 mg PO DAILY #60 tab 10/21/17 Metoprolol Succinate [Toprol Xl -] 25 mg PO DAILY #30 tab.sr.24h 10/21/17 REVIEW OF SYSTEMS CONSTITUTIONAL: Absent: fever, chills, diaphoresis, generalized weakness, malaise, loss of appetite, weight change HEENT: Absent: rhinorrhea, nasal congestion, throat pain, throat swelling, difficulty swallowing, mouth swelling, ear pain, eye pain, visual changes CARDIOVASCULAR: syncope, lightheadedness Absent: chest pain, palpitations, irregular heart rate, peripheral edema RESPIRATORY: Absent: cough, shortness of breath, dyspnea with exertion, orthopnea, wheezing, stridor, hemoptysis GASTROINTESTINAL: epigstric pain, nausea Absent: abdominal distension, vomiting, diarrhea, constipation, melena, hematochezia GENITOURINARY: Absent: dysuria, frequency, urgency, hesitancy, hematuria, flank pain, genital pain MUSCULOSKELETAL: Absent: myalgia, arthralgia, joint swelling, back pain, neck pain SKIN: Absent: rash, itching, pallor HEMATOLOGIC/IMMUNOLOGIC: Absent: easy bleeding, easy bruising, lymphadenopathy, frequent infections ENDOCRINE: Absent: unexplained weight gain, unexplained weight loss, heat intolerance, cold intolerance NEUROLOGIC: dizziness Absent: headache, focal weakness or paresthesias, unsteady gait, seizure, mental status changes, bladder or bowel incontinence PSYCHIATRIC: Absent: anxiety, depression, suicidal or homicidal ideation, hallucinations. PHYSICAL EXAMINATION Vital Signs - 24 hr 10/22/17 01:06 Temperature 97.5 F L Pulse Rate 58 L Respiratory 18 Rate Blood Pressure 151/75 O2 Sat by Pulse 100 Oximetry (%) GENERAL: Severely Obese, awake, alert, and fully oriented, in no acute distress. HEAD: Normal with no signs of trauma. EYES: Pupils equal, round and reactive to light, extraocular movements intact, sclera anicteric, conjunctiva clear. No lid lag. EARS, NOSE, THROAT: Ears normal, nares patent, oropharynx clear without exudates. Moist mucous membranes. NECK: Normal range of motion, supple without lymphadenopathy, JVD, or masses. LUNGS: Breath sounds equal, clear to auscultation bilaterally. No wheezes, and no crackles. No accessory muscle use. HEART: Irregular rate and rhythm, normal S1 and S2 without murmur, rub or gallop. ABDOMEN: Soft, nontender, not distended, normoactive bowel sounds, no guarding, no rebound, no masses. No hepatomegaly or splenomegaly. MUSCULOSKELETAL: Normal range of motion at all joints. No bony deformities or tenderness. No CVA tenderness. UPPER EXTREMITIES: 2+ pulses, warm, well-perfused. No cyanosis. No clubbing. No peripheral edema. LOWER EXTREMITIES: 2+ pulses, warm, well-perfused. No calf tenderness. No peripheral edema. NEUROLOGICAL: Cranial nerves II-XII intact. Normal speech. Gait not observed. PSYCHIATRIC: Cooperative. Good eye contact. Appropriate mood and affect. SKIN: Warm, dry, normal turgor, no rashes or lesions noted, normal capillary refill. Laboratory Results - last 24 hr 10/22/17 10/22/17 10/22/17 01:52 01:52 01:52 WBC 4.9 RBC 4.84 Hgb 13.9 Hct 42.5 MCV 87.8 MCH 28.7 MCHC 32.7 RDW 15.1 Plt Count 148 MPV 10.9 Absolute Neuts (auto) 2.5 Neutrophils % 50.9 D Lymphocytes % 36.7 Monocytes % 8.8 Eosinophils % 3.2 Basophils % 0.4 Nucleated RBC % 0 PT with INR 12.60 INR 1.12 Sodium 140 Potassium 3.8 Chloride 103 Carbon Dioxide 28 Anion Gap 9 BUN 14 Creatinine 1.4 H Creat Clearance w eGFR 53.86 Random Glucose 121 H D Calcium 8.7 Magnesium 2.1 Total Bilirubin 0.7 AST 21 ALT 30 Alkaline Phosphatase 76 Creatine Kinase 421 H Creatine Kinase Index 0.9 CK-MB (CK-2) 3.79 H Troponin I < 0.02 Total Protein 6.7 Albumin 3.5 ASSESSMENT/PLAN: 47 y/o man PMH of HTN, HLD, DM, GERD, Asthma, Fatty Liver. Admitted to Telemetry Syncope secondary to Symptomatic Bradycardia. Plan: 1. Syncope - Likely secondary to arrhythmia vs medication - Continue cardiac monitoring - EKG- SR with PACs - Serial Enzymes - Appreciate Cardiology consult - Mg, Phos in am - CBC, BMP in am - Recent Echo 10/21 showed- LVSF normal, mildly dilated LA, mild TR, trace- mild AR, mod AR dilatation 4.5cm - Fall Precautions - Hold BB/CCB until seen by Cardiology 2. Symptomatic Bradycardia - Likely secondary to BB vs PACs - Cardiac monitoring - Pacer Pads - Hold BB/CCB - Appreciate Cardiology consult 3. Hypertension - stable - Hold home meds secondary to episodes of Bradycardia with PACs in the ED - Monitor renal function 4. Hyperlipidemia - no current med - Reviewed lipid panel 10/21:trig 62, chol 146, LDL 85, HDL 55 - Consider Lipitor, secondary to risk factors, lifestyle - Monitor LFTs 5. Diabetes Mellitus - stable - Continue Glipizide - HgbA1C in am 6. GERD - Pepcid 7. Asthma - well controlled - Duoneb prn 8. FEN - PO fluids as tolerated - Replete lytes prn - Low Na, Diabetic, Low Cholesterol Diet 9. DVT ppx - OOB - SCDs - Heparin SQ Code Status: Full Code Dispo: Requires Inpatient Care Problem List - Problem (1) Syncope Code(s): R55 - SYNCOPE AND COLLAPSE (2) Irregular heart beat Code(s): I49.9 - CARDIAC ARRHYTHMIA, UNSPECIFIED (3) Symptomatic bradycardia Code(s): R00.1 - BRADYCARDIA, UNSPECIFIED (4) Diabetes mellitus Code(s): E11.9 - TYPE 2 DIABETES MELLITUS WITHOUT COMPLICATIONS (5) HLD (hyperlipidemia) Code(s): E78.5 - HYPERLIPIDEMIA, UNSPECIFIED (6) GERD (gastroesophageal reflux disease) Code(s): K21.9 - GASTRO-ESOPHAGEAL REFLUX DISEASE WITHOUT ESOPHAGITIS Qualifiers: Esophagitis presence: esophagitis presence not specified Qualified Code(s) : K21.9 - Gastro-esophageal reflux disease without esophagitis (7) Asthma Code(s): J45.909 - UNSPECIFIED ASTHMA, UNCOMPLICATED (8) Fatty liver Code(s): K76.0 - FATTY (CHANGE OF) LIVER, NOT ELSEWHERE CLASSIFIED Visit type - Emergency Visit Emergency Visit: Yes ED Registration Date: 10/22/17 Care time: The patient presented to the Emergency Department on the above date and was hospitalized for further evaluation of their emergent condition. - New Patient This patient is new to me today: Yes Date on this admission: 10/22/17 - Critical Care Critical Care patient: No Hospitalist Screening - Colonoscopy Questionnaire Colonoscopy Questionnaire: Colonoscopy Questionnaire - Patient: 50 - 75 years old and never had a screening colonoscopy: No History of colon or rectal polyps, or CA: No History of IBD, Crohn's disease or UC: No History of abdominal radiation therapy as a child: No - Relative: 1 with colon or rectal CA, or polyps at age 60 or younger: No Colon or rectal CA diagnosed at age 45 or younger: No Multiple relatives with colon or rectal CA: No - Outcome: Screening Result: Negative Screen
[2017-10-22 05:52] LABS: URINE APPEARANCE CLEAR; URINE BILIRUBIN NEGATIVE (<2.0 mg/dL); URINE COLOR YELLOW; URINE GLUCOSE (UA) NEGATIVE (NEGATIVE); URINE KETONE TRACE (NEGATIVE); URINE LEUK ESTERASE NEGATIVE (NEGATIVE); URINE NITRITE NEGATIVE (NEGATIVE); URINE UROBILINOGEN NEGATIVE mg/dL (0.2-1.0)
[2017-10-22 05:57] LABS: URINE PROTEIN 2+ (NEGATIVE)
[2017-10-22 06:02] LABS: URINE MUCUS RARE
[2017-10-22] MEDS ORDERED: HEPARIN NA (PORCINE) 5,000 UNITS/ML 1ML VIAL ONE (06:41)
[2017-10-22] MEDS ORDERED: glipiZIDE 5 MG TABLET (FP) ONE (06:41)
[2017-10-22] MEDS: HEPARIN NA (PORCINE) 5,000 UNITS/ML 1ML VIAL SQ SCH ×2 (07:03→14:35)
[2017-10-22] MEDS: glipiZIDE 5 MG TABLET (FP) PO SCH (07:03)
[2017-10-22 09:30] LABS: BASO % 0.5 % (0-2.0); EOS % 0.5 % (0-4.5); HEMATOCRIT 40.8 % (35.4-49); HEMOGLOBIN 13.5 GM/dL (11.7-16.9); LYMPH % 19.5 % (8-40); MCH 28.8 pg (25.7-33.7); MCHC 33.1 g/dl (32.0-35.9); MEAN CELL VOLUME 86.9 fl (80-96); MEAN PLT VOLUME 10.9 fl (7.5-11.1); MONO % 5.5 % (3.8-10.2); PLATELET COUNT 154 K/MM3 (134-434); RBC 4.69 M/mm3 (4.00-5.60); WHITE BLOOD COUNT 4.7 K/mm3 (4.0-10.0)
[2017-10-22 10:10] LABS: ANION GAP 5 (8-16); BLOOD UREA NITROGEN 14 mg/dL (7-18); CALCIUM 8.5 mg/dL (8.5-10.1); CHLORIDE 105 mmol/L (98-107); CO2 28 mmol/L (21-32); GLUCOSE,RANDOM 131 mg/dL (74-106); POTASSIUM 4.3 mmol/L (3.5-5.1); SODIUM 138 mmol/L (136-145)
[2017-10-22 10:14] LABS: CREATININE 1.1 mg/dL (0.7-1.3)
--- NOTE | 2017-10-22 11:45 | PN ---
Progress Note (short form) - Note Progress Note: no complaints no palpitations Vital Signs - 24 hr 10/22/17 10/22/17 10/22/17 01:06 05:19 08:15 Temperature 97.5 F L 98.2 F Pulse Rate 58 L Pulse Rate [ 87 65 Left Radial] Respiratory 18 18 18 Rate Blood Pressure 151/75 Blood Pressure 125/86 151/72 [Left Arm] O2 Sat by Pulse 100 97 100 Oximetry (%) Current Medications Generic Name Dose Route Start Last Admin Trade Name Alice PRN Reason Stop Dose Admin Glipizide 5 mg 10/22/17 07:00 10/22/17 07:03 Glucotrol - PO Not Given DAILY@0700 [facility] Heparin Sodium (Porcine) 5,000 unit 10/22/17 06:00 10/22/17 07:03 Heparin - SQ Not Given TID [facility] Famotidine/Sodium Chloride 20 mg in 50 mls @ 100 mls/hr 10/22/17 14:00 Pepcid 20 Mg Premixed Ivpb - IVPB BID [facility] Laboratory Results - last 24 hr 10/22/17 10/22/17 10/22/17 01:52 01:52 01:52 WBC 4.9 RBC 4.84 Hgb 13.9 Hct 42.5 MCV 87.8 MCH 28.7 MCHC 32.7 RDW 15.1 Plt Count 148 MPV 10.9 Absolute Neuts (auto) 2.5 Neutrophils % 50.9 D Lymphocytes % 36.7 Monocytes % 8.8 Eosinophils % 3.2 Basophils % 0.4 Nucleated RBC % 0 PT with INR 12.60 INR 1.12 Sodium 140 Potassium 3.8 Chloride 103 Carbon Dioxide 28 Anion Gap 9 BUN 14 Creatinine 1.4 H Creat Clearance w eGFR 53.86 POC Glucometer Random Glucose 121 H D Hemoglobin A1c % Calcium 8.7 Phosphorus Magnesium 2.1 Total Bilirubin 0.7 AST 21 ALT 30 Alkaline Phosphatase 76 Creatine Kinase 421 H Creatine Kinase Index 0.9 CK-MB (CK-2) 3.79 H Troponin I < 0.02 Total Protein 6.7 Albumin 3.5 Urine Color Urine Appearance Urine pH Ur Specific [place] Urine Protein Urine Glucose (UA) Urine Ketones Urine Blood Urine Nitrite Urine Bilirubin Urine Urobilinogen Ur Leukocyte Esterase Urine WBC (Auto) Urine RBC (Auto) Urine Mucus 10/22/17 10/22/17 10/22/17 05:30 06:53 08:40 WBC 4.7 RBC 4.69 Hgb 13.5 Hct 40.8 MCV 86.9 MCH 28.8 MCHC 33.1 RDW 15.0 Plt Count 154 MPV 10.9 Absolute Neuts (auto) 3.5 Neutrophils % 74.0 D Lymphocytes % 19.5 D Monocytes % 5.5 Eosinophils % 0.5 D Basophils % 0.5 Nucleated RBC % 0 PT with INR INR Sodium Potassium Chloride Carbon Dioxide Anion Gap BUN Creatinine Creat Clearance w eGFR POC Glucometer 132.45022 Random Glucose Hemoglobin A1c % Calcium Phosphorus Magnesium Total Bilirubin AST ALT Alkaline Phosphatase Creatine Kinase Creatine Kinase Index CK-MB (CK-2) Troponin I Total Protein Albumin Urine Color Yellow Urine Appearance Clear Urine pH 5.0 D Ur Specific [place] 1.018 Urine Protein 2+ H Urine Glucose (UA) Negative Urine Ketones Trace H Urine Blood Negative Urine Nitrite Negative Urine Bilirubin Negative Urine Urobilinogen Negative Ur Leukocyte Esterase Negative Urine WBC (Auto) <1 Urine RBC (Auto) None Urine Mucus Rare 10/22/17 10/22/17 08:40 08:40 WBC RBC Hgb Hct MCV MCH MCHC RDW Plt Count MPV Absolute Neuts (auto) Neutrophils % Lymphocytes % Monocytes % Eosinophils % Basophils % Nucleated RBC % PT with INR INR Sodium 138 Potassium 4.3 Chloride 105 Carbon Dioxide 28 Anion Gap 5 L BUN 14 Creatinine 1.1 Creat Clearance w eGFR > 60 POC Glucometer Random Glucose 131 H Hemoglobin A1c % 6.4 H Calcium 8.5 Phosphorus 4.0 Magnesium 2.0 Total Bilirubin AST ALT Alkaline Phosphatase Creatine Kinase Creatine Kinase Index CK-MB (CK-2) Troponin I < 0.02 Total Protein Albumin Urine Color Urine Appearance Urine pH Ur Specific [place] Urine Protein Urine Glucose (UA) Urine Ketones Urine Blood Urine Nitrite Urine Bilirubin Urine Urobilinogen Ur Leukocyte Esterase Urine WBC (Auto) Urine RBC (Auto) Urine Mucus Hospitalist eval noted Meds and labs noted will resume care Admit to telemetry
--- NOTE | 2017-10-22 12:49 | CON.CARD ---
Cardiology Consult (text) - Consultation Consultation Note: cc: syncope hpi: 47 m hx htn, hld, dm here with syncope. Yesterday in ER for palps, found to have pacs, discharged on bb. Then went home and in middle of night got up to urinate and urine looked dark so he sat on med and checked FSG and then passed out. says he had loc for 2-3 mins, then awoke and felt fine. No prodrome sxs. No cp,sob, dizzy, pnd, orthopnea, le edema. Feeling well now. pmh: per hpi psh: hernia repair fam: mom mi 69 social: ex tob ros: per hpi; no nvd fever cough chavez vision changes muscel pains gib hematuria dysuria meds: Ambulatory Orders Home Medications Medication Instructions Recorded Glipizide [Glipizide ER] 5 mg PO DAILY 09/15/12 Losartan Potassium 50 mg PO DAILY 10/22/17 pe: Vital Signs Period Temp Pulse Resp BP Sys/Bingham Pulse Ox Last 24 Hr 97.5 F-98.2 F 58-87 -18 125-151/72-86 97-100 nad no jvd rrr s1s2 no mrg cta bl nl eff aaox3 no le e/c/c abd nt nd pos bs no jaundice diaphoresis pos dp pt no carotid bruits Laboratory Last Values WBC 4.7 K/mm3 (4.0-10.0) 10/22/17 08:40 RBC 4.69 M/mm3 (4.00-5.60) 10/22/17 08:40 Hgb 13.5 GM/dL (11.7-16.9) 10/22/17 08:40 Hct 40.8 % (35.4-49) 10/22/17 08:40 MCV 86.9 fl (80-96) 10/22/17 08:40 MCH 28.8 pg (25.7-33.7) 10/22/17 08:40 MCHC 33.1 g/dl (32.0-35.9) 10/22/17 08:40 RDW 15.0 % (11.9-15.9) 10/22/17 08:40 Plt Count 154 K/MM3 (134-434) 10/22/17 08:40 MPV 10.9 fl (7.5-11.1) 10/22/17 08:40 Absolute Neuts (auto) 3.5 # 10/22/17 08:40 Neutrophils % 74.0 % (42.8-82.8) D 10/22/17 08:40 Lymphocytes % 19.5 % (8-40) D 10/22/17 08:40 Monocytes % 5.5 % (3.8-10.2) 10/22/17 08:40 Eosinophils % 0.5 % (0-4.5) D 10/22/17 08:40 Basophils % 0.5 % (0-2.0) 10/22/17 08:40 Nucleated RBC % 0 % (0-0) 10/22/17 08:40 PT with INR 12.60 SEC (9.7-13.0) 10/22/17 01:52 INR 1.12 (0.82-1.09) 10/22/17 01:52 Sodium 138 mmol/L (136-145) 10/22/17 08:40 Potassium 4.3 mmol/L (3.5-5.1) 10/22/17 08:40 Chloride 105 mmol/L (98-107) 10/22/17 08:40 Carbon Dioxide 28 mmol/L (21-32) 10/22/17 08:40 Anion Gap 5 (8-16) L 10/22/17 08:40 BUN 14 mg/dL (7-18) 10/22/17 08:40 Creatinine 1.1 mg/dL (0.7-1.3) 10/22/17 08:40 Creat Clearance w eGFR > 60 (>60) 10/22/17 08:40 POC Glucometer 132.64576 UNITS (80-120) 10/22/17 06:53 Random Glucose 131 mg/dL (74-106) H 10/22/17 08:40 Hemoglobin A1c % 6.4 % (4.8-6.0) H 10/22/17 08:40 Calcium 8.5 mg/dL (8.5-10.1) 10/22/17 08:40 Phosphorus 4.0 mg/dL (2.5-4.9) 10/22/17 08:40 Magnesium 2.0 mg/dL (1.8-2.4) 10/22/17 08:40 Total Bilirubin 0.7 mg/dL (0.2-1.0) 10/22/17 01:52 AST 21 U/L (15-37) 10/22/17 01:52 ALT 30 U/L (12-78) 10/22/17 01:52 Alkaline Phosphatase 76 U/L (45-117) 10/22/17 01:52 Creatine Kinase 421 IU/L (39-308) H 10/22/17 01:52 Creatine Kinase Index 0.9 % (0.0-5.0) 10/22/17 01:52 CK-MB (CK-2) 3.79 ng/mL (0.5-3.6) H 10/22/17 01:52 Troponin I < 0.02 ng/ml (0.00-0.05) 10/22/17 08:40 Total Protein 6.7 g/dl (6.4-8.2) 10/22/17 01:52 Albumin 3.5 g/dl (3.4-5.0) 10/22/17 01:52 Urine Color Yellow 10/22/17 05:30 Urine Appearance Clear 10/22/17 05:30 Urine pH 5.0 (5.0-8.0) D 10/22/17 05:30 Ur Specific [place] 1.018 (1.001-1.035) 10/22/17 05:30 Urine Protein 2+ (NEGATIVE) H 10/22/17 05:30 Urine Glucose (UA) Negative (NEGATIVE) 10/22/17 05:30 Urine Ketones Trace (NEGATIVE) H 10/22/17 05:30 Urine Blood Negative (NEGATIVE) 10/22/17 05:30 Urine Nitrite Negative (NEGATIVE) 10/22/17 05:30 Urine Bilirubin Negative (<2.0 mg/dL) 10/22/17 05:30 Urine Urobilinogen Negative mg/dL (0.2-1.0) 10/22/17 05:30 Ur Leukocyte Esterase Negative (NEGATIVE) 10/22/17 05:30 Urine WBC (Auto) <1 /hpf (3-5) 10/22/17 05:30 Urine RBC (Auto) None /hpf (0-3) 10/22/17 05:30 Urine Mucus Rare 10/22/17 05:30 cxr: clear lungs ecg: sr, nl intervals, no ischemic changes echo 09/2017: nl lv/rv, lae, mild tr, ao root 4.5 cm a/p: 47 m hx htn, hld, dm here with syncope: palps, abnl ecg/pacs: -palps seem to correlate with pacs, have resolved now on tele and palps gone as well -likely a benign condition -tsh and echo unremarkable -cont tele, if frequent symptomatic pacs would start toprol 25 qd syncope: -seems vasovagal -recent echo unremarkable -no signs chf, acs -check ortho vs -cont tele -check nuclear stress test tuesday htn: -cont home cozaar 50 and norvasc 5 hld: -stable
[2017-10-22] MEDS: FAMOTIDINE 20 MG/50 ML IVPB 20 MG/50 ML MG IVPB SCH (14:00)
[2017-10-22] MEDS ORDERED: traMADol HCL 50 MG TABLET PO PRN (16:35)
[2017-10-23] MEDS ORDERED: ONDANSETRON 4 MG/2 ML VIAL IVPUSH PRN (01:12)
[2017-10-23] MEDS: HEPARIN NA (PORCINE) 5,000 UNITS/ML 1ML VIAL SQ SCH ×4 (06:13→21:12)
[2017-10-23] MEDS: glipiZIDE 5 MG TABLET (FP) PO SCH (08:07)
[2017-10-23] MEDS: FAMOTIDINE 20 MG/50 ML IVPB 20 MG/50 ML MG IVPB SCH (10:07)
--- NOTE | 2017-10-23 10:14 | PN ---
Progress Note, Physician Chief Complaint: no palpitations no chest pain - Current Medication List Current Medications: Active Medications Glipizide (Glucotrol -) 5 mg PO DAILY@0700 [facility] Last Admin: 10/22/17 07:03 Dose: Not Given Heparin Sodium (Porcine) (Heparin -) 5,000 unit SQ TID [facility] Last Admin: 10/23/17 07:19 Dose: Not Given Famotidine/Sodium Chloride (Pepcid 20 Mg Premixed Ivpb -) 20 mg in 50 mls @ 100 mls/hr IVPB BID [facility] Last Admin: 10/22/17 14:00 Dose: 100 mls/hr Ondansetron HCl (Zofran Injection) 4 mg IVPUSH Q6H PRN PRN Reason: NAUSEA AND/OR VOMITING Last Admin: 10/23/17 01:17 Dose: 4 mg Tramadol HCl (Ultram -) 50 mg PO Q6H PRN PRN Reason: PAIN LEVEL 4 - 6 Last Admin: 10/22/17 16:43 Dose: 50 mg - Objective Vital Signs: Vital Signs Temperature 98.4 F 10/23/17 08:01 Pulse Rate 73 10/23/17 08:01 Respiratory Rate 16 10/23/17 08:04 Blood Pressure 120/74 10/23/17 08:01 O2 Sat by Pulse Oximetry (%) 100 10/23/17 08:04 Constitutional: Yes: No Distress, Calm Cardiovascular: Yes: Regular Rate and Rhythm Respiratory: Yes: CTA Bilaterally Gastrointestinal: Yes: Normal Bowel Sounds, Soft. No: Tenderness Edema: No Labs: CBC, BMP 10/22/17 08:40 10/22/17 08:40 INR, PTT INR 1.12 (0.82-1.09) 10/22/17 01:52 Problem List - Problems (1) Diabetes mellitus Code(s): E11.9 - TYPE 2 DIABETES MELLITUS WITHOUT COMPLICATIONS (2) HLD (hyperlipidemia) Code(s): E78.5 - HYPERLIPIDEMIA, UNSPECIFIED (3) Syncope Code(s): R55 - SYNCOPE AND COLLAPSE Assessment/Plan PLAN few PACs on Telemetry asymptomatic continue with meds will hold off beta blockers spoke with [employer] Stress test in AM
--- NOTE | 2017-10-23 12:06 | PN ---
Progress Note (short form) - Note Progress Note: s: no cp sob palps dizzy o: Vital Signs Period Temp Pulse Resp BP Sys/Bingham Pulse Ox Last 24 Hr 98 F-98.4 F 57-78 16-16 120-156/70-87 100-100 nad no jvd rrr s1s2 no mrg cta bl nl eff aaox3 no le e/c/c abd nt nd pos bs no jaundice diaphoresis Current Medications Generic Name Dose Route Start Last Admin Trade Name Freq PRN Reason Stop Dose Admin Glipizide 5 mg 10/22/17 07:00 10/22/17 07:03 Glucotrol - PO Not Given DAILY@0700 [facility] Heparin Sodium (Porcine) 5,000 unit 10/22/17 06:00 10/23/17 07:19 Heparin - SQ Not Given TID [facility]NAM[facility] Ondansetron HCl 4 mg 10/23/17 01:12 10/23/17 01:17 Zofran Injection IVPUSH 4 mg Q6H PRN Administration NAUSEA AND/OR VOMITING Pantoprazole Sodium 40 mg 10/24/17 10:00 Protonix - PO DAILY [facility] Tramadol HCl 50 mg 10/22/17 16:35 10/22/17 16:43 Ultram - PO 50 mg Q6H PRN Administration PAIN LEVEL 4 - 6 CBC, BMP 10/22/17 08:40 10/22/17 08:40 cxr: clear lungs ecg: sr, nl intervals, no ischemic changes echo 09/2017: nl lv/rv, lae, mild tr, ao root 4.5 cm tele: sr, occ pacs a/p: 47 m hx htn, hld, dm here with syncope: palps, abnl ecg/pacs: -palps seem to correlate with pacs, minimal pacs on tele now and pt has no further palps -likely a benign condition -tsh and echo unremarkable -if frequent symptomatic pacs would start dilt (pt tried toprol 25 qd and did not like side fx) syncope: -seems vasovagal -recent echo unremarkable -no signs chf, acs -cont tele -check nuclear stress test tuesday, if benign then ok for dc from cardiac pov htn: -cont home cozaar 50 hld: -stable
[2017-10-23] MEDS ORDERED: LOSARTAN POTASSIUM 50 MG TABLET (FP) PO ONE (15:00)
[2017-10-24] MEDS: HEPARIN NA (PORCINE) 5,000 UNITS/ML 1ML VIAL SQ SCH ×2 (06:42→14:00)
[2017-10-24] MEDS: glipiZIDE 5 MG TABLET (FP) PO SCH ×2 (07:02→14:00)
[2017-10-24] MEDS ORDERED: REGADENOSON 0.4 MG/5 ML PRE-FILLED SYRINGE IVPUSH ONE ×2 (09:30→11:59)
--- NOTE | 2017-10-24 09:52 | PN ---
Progress Note, Physician History of Present Illness: Cardiology for Ginelli/Gitig: No further chest pain, dyspnea, palpitations, near or true syncope. - Current Medication List Current Medications: Active Medications Glipizide (Glucotrol -) 5 mg PO DAILY@0700 [facility] Last Admin: 10/24/17 07:02 Dose: Not Given Heparin Sodium (Porcine) (Heparin -) 5,000 unit SQ TID [facility] Last Admin: 10/24/17 06:42 Dose: 5,000 unit Losartan Potassium (Cozaar -) 50 mg PO DAILY [facility] Ondansetron HCl (Zofran Injection) 4 mg IVPUSH Q6H PRN PRN Reason: NAUSEA AND/OR VOMITING Last Admin: 10/23/17 01:17 Dose: 4 mg Pantoprazole Sodium (Protonix -) 40 mg PO DAILY [facility] Tramadol HCl (Ultram -) 50 mg PO Q6H PRN PRN Reason: PAIN LEVEL 4 - 6 Last Admin: 10/22/17 16:43 Dose: 50 mg - Objective Vital Signs: Vital Signs Temperature 98.0 F 10/24/17 07:27 Pulse Rate 64 10/24/17 07:27 Respiratory Rate 20 10/24/17 07:31 Blood Pressure 149/90 10/24/17 07:27 O2 Sat by Pulse Oximetry (%) 100 10/24/17 07:31 Constitutional: Yes: No Distress, Calm Neck: Yes: Supple Cardiovascular: Yes: Regular Rate and Rhythm Respiratory: Yes: Regular, CTA Bilaterally Gastrointestinal: Yes: Normal Bowel Sounds, Soft Edema: No Labs: CBC, BMP 10/22/17 08:40 10/22/17 08:40 INR, PTT INR 1.12 (0.82-1.09) 10/22/17 01:52 Problem List - Problems (1) Palpitations Code(s): R00.2 - PALPITATIONS (2) Diabetes mellitus Code(s): E11.9 - TYPE 2 DIABETES MELLITUS WITHOUT COMPLICATIONS Qualifiers: Diabetes mellitus type: type 2 Diabetes mellitus terminal carman insulin use: without jail use (3) Syncope Code(s): R55 - SYNCOPE AND COLLAPSE Qualifiers: Syncope type: vasovagal syncope Qualified Code(s): R55 - Syncope and collapse (4) High blood pressure Code(s): I10 - ESSENTIAL (PRIMARY) HYPERTENSION Qualifiers: Hypertension type: essential hypertension Qualified Code(s): I10 - Essential (primary) hypertension (5) Premature atrial contraction Code(s): I49.1 - ATRIAL PREMATURE DEPOLARIZATION Assessment/Plan cxr: clear lungs ecg: sr, nl intervals, no ischemic changes echo 09/2017: nl lv/rv, lae, mild tr, ao root 4.5 cm pharm stress 09/2017: Small inferobasal mild ischemia, LVEF 74% tele: sr, occ pacs a/p: 47 m hx htn, hld, dm here with syncope: palps, abnl ecg/pacs: -palps seem to correlate with pacs, minimal pacs on tele now and pt has no further palps -likely a benign condition -tsh and echo unremarkable -if frequent symptomatic pacs would start dilt (pt tried toprol 25 qd and did not like side fx) syncope: -seems vasovagal -recent echo unremarkable -no signs chf, acs -cont tele -f/u nuclear stress test shows mild ischemia, low risk, start Cardizem CD 120 qd htn: -cont home cozaar 50 hld: -stable type 2 DM: -cont glucotrol Dispo: -d/c home with f/u with Dr. Bautista
[2017-10-24] MEDS ORDERED: PANTOPRAZOLE 40 MG TABLET (FP) PO SCH (10:00)
[2017-10-24] MEDS ORDERED: LOSARTAN POTASSIUM 25 MG TABLET ONE (12:06)
[2017-10-24] MEDS: LOSARTAN POTASSIUM 50 MG TABLET (FP) PO SCH ×2 (12:08→14:00)
--- NOTE | 2017-10-24 12:42 | PN ---
Progress Note, Physician - Current Medication List Current Medications: Active Medications Glipizide (Glucotrol -) 5 mg PO DAILY@0700 [facility] Last Admin: 10/24/17 07:02 Dose: Not Given Heparin Sodium (Porcine) (Heparin -) 5,000 unit SQ TID [facility] Last Admin: 10/24/17 06:42 Dose: 5,000 unit Losartan Potassium (Cozaar -) 50 mg PO DAILY [facility] Last Admin: 10/24/17 12:08 Dose: 50 mg Ondansetron HCl (Zofran Injection) 4 mg IVPUSH Q6H PRN PRN Reason: NAUSEA AND/OR VOMITING Last Admin: 10/23/17 01:17 Dose: 4 mg Pantoprazole Sodium (Protonix -) 40 mg PO DAILY [facility] Tramadol HCl (Ultram -) 50 mg PO Q6H PRN PRN Reason: PAIN LEVEL 4 - 6 Last Admin: 10/22/17 16:43 Dose: 50 mg - Objective Vital Signs: Vital Signs Temperature 98.0 F 10/24/17 07:27 Pulse Rate 64 10/24/17 07:27 Respiratory Rate 20 10/24/17 07:31 Blood Pressure 184/98 10/24/17 12:05 O2 Sat by Pulse Oximetry (%) 100 10/24/17 07:31 Labs: CBC, BMP 10/22/17 08:40 10/22/17 08:40 INR, PTT INR 1.12 (0.82-1.09) 10/22/17 01:52
[2017-10-24 15:25] VITALS: BP 144/96; PULSE 85; TEMP 98.5
--- NOTE | 2017-10-24 21:53 | EKG ---
Test Reason : Blood Pressure : / mmHG Vent. Rate : 063 BPM Atrial Rate : 063 BPM P-R Int : 166 ms QRS Dur : 088 ms QT Int : 396 ms P-R-T Axes : 045 -06 015 degrees QTc Int : 405 ms NORMAL SINUS RHYTHM NORMAL ECG WHEN COMPARED WITH ECG OF 22-OCT-2017 01:42, PREMATURE ATRIAL COMPLEXES ARE NO LONGER PRESENT Confirmed by PIERRE CHRISTENSEN MD ([id number]) on 10/24/2017 9:52:48 PM Referred By: Kesha HANSEN Confirmed By:PIERRE CHRISTENSEN MD
--- NOTE | 2017-10-24 21:56 | EKG ---
Test Reason : Blood Pressure : / mmHG Vent. Rate : 072 BPM Atrial Rate : 072 BPM P-R Int : 158 ms QRS Dur : 094 ms QT Int : 394 ms P-R-T Axes : 040 008 032 degrees QTc Int : 431 ms SINUS RHYTHM WITH PREMATURE ATRIAL COMPLEXES OTHERWISE NORMAL ECG WHEN COMPARED WITH ECG OF 21-OCT-2017 09:26, PREMATURE ATRIAL COMPLEXES ARE NOW PRESENT Confirmed by PIERRE CHRISTENSEN MD ([id number]) on 10/24/2017 9:55:51 PM Referred By: Confirmed By:PIERRE CHRISTENSEN MD
[2017-10-25] MEDS ORDERED: ASPIRIN 81 MG CHEWABLE TABLETS PO SCH (10:00)
== END 2017-10-24 17:29 | disposition home or self-care (01) | DRG 204 ==
LOC: JER 00:52 → JERBED 03:09 → J4W 10-23 00:01
PROVIDERS: ADMIT Internal Medicine; ATTEND Internal Medicine
DX: R55 Syncope and collapse (principal); R00.1 Bradycardia, unspecified; I10 Essential (primary) hypertension; E78.5 Hyperlipidemia, unspecified; E11.9 Type 2 diabetes mellitus without complications; K21.9 Gastro-esophageal reflux disease without esophagitis; J45.909 Unspecified asthma, uncomplicated; K76.0 Fatty (change of) liver, not elsewhere classified; I49.1 Atrial premature depolarization; E66.01 Morbid (severe) obesity due to excess calories; Z68.41 Body mass index [BMI] 40.0-44.9, adult
CPT/HCPCS: 36415; 71045-TC-FY; 78452-TC; 80048; 80053; 81003; 81015; 82550; 82553; 82962; 83036; 83735; 84100; 84484; 85025; 85610; 93005; 93010; 93017; 99285-25; A9502; J1245; J1644

== ENCOUNTER 2018-01-17 00:19 | Observation (INO) | payer OTHER ==
[2018-01-17 01:57] LABS: BASO % 0.8 % (0-2.0); EOS % 2.9 % (0-4.5); HEMATOCRIT 39.9 % (35.4-49); HEMOGLOBIN 13.3 GM/dL (11.7-16.9); LYMPH % 40.4 % (8-40); MCHC 33.4 g/dl (32.0-35.9); MEAN CELL VOLUME 86.8 fl (80-96); MEAN PLT VOLUME 10.7 fl (7.5-11.1); MONO % 10.4 % (3.8-10.2); NEUT % 45.5 % (42.8-82.8); PLATELET COUNT 156 K/MM3 (134-434); RDW 15.2 % (11.9-15.9); WHITE BLOOD COUNT 3.6 K/mm3 (4.0-10.0)
[2018-01-17 02:20] LABS: ALBUMIN 3.4 g/dl (3.4-5.0); ANION GAP 4 MMOL/L (8-16); BILIRUBIN,TOTAL 0.7 mg/dL (0.2-1); BLOOD UREA NITROGEN 14 mg/dL (7-18); CALCIUM 8.7 mg/dL (8.5-10.1); CHLORIDE 104 mmol/L (98-107); CO2 32 mmol/L (21-32); CREATININE 1.4 mg/dL (0.55-1.3); GLUCOSE,RANDOM 97 mg/dL (74-106); POTASSIUM 4.3 mmol/L (3.5-5.1); SGOT/AST 22 U/L (15-37); SGPT/ALT 26 U/L (13-61); SODIUM 140 mmol/L (136-145); TOT PROT 6.7 g/dl (6.4-8.2)
[2018-01-17 02:21] LABS: ALK PHOS 75 U/L (45-117)
--- NOTE | 2018-01-17 02:21 | PDOC ---
History of Present Illness - General Chief Complaint: Blood Pressure Problem Stated Complaint: HIGH BLOOD PRESSURE History Source: Patient Exam Limitations: No Limitations - History of Present Illness Initial Comments: 01/17/18 03:32 47-year-old male history of hypertension here today complaining of palpitations. Patient states that he has been having admit to feelings of palpitations denies any shortness of breath no nausea no vomiting he was also complaining of some mild epigastric upper abdominal pain has had loose stools but no vomiting no leg swelling no moderating factors. After chart review the patient did recently have a perfusion study performed by cardiology in September of this year no family history of heart disease does have a family history of hypertension and diabetes states he is currently on losartan 50 mg in the a.m. and 25 mg every afternoon just takes Cardizem 120 mg daily. Patient has been checking his blood pressures recently and they have been anywhere from 1 [phone] systolic was concerned due to the elevated blood pressure and palpitations therefore he came for evaluation denies any headache no blurry vision no focal weakness Past History - Past Medical History Allergies/Adverse Reactions: Allergies Allergy/AdvReac Type Severity Reaction Status Date / Time shellfish derived Allergy Rash Verified 01/17/18 01:08 Home Medications: Ambulatory Orders Glipizide [Glipizide ER] 5 mg PO DAILY 09/15/12 Losartan Potassium 50 mg PO DAILY 10/22/17 Aspirin [ASA -] 81 mg PO DAILY #30 tab.chew 10/24/17 Diltiazem Cd [Cardizem Cd -] 120 mg PO DAILY #30 cap.cd.24h 10/24/17 Anemia: No Asthma: Yes Cancer: No Cardiac Disorders: No CVA: No COPD: No CHF: No DVT: No Dementia: No Diabetes: Yes GI Disorders: No Disorders: No HTN: Yes Hypercholesterolemia: Yes Liver Disease: (FATTY LIVER) Seizures: No Thyroid Disease: No - Surgical History Abdominal Surgery: Yes (umbilcial hernia repair) Appendectomy: No Cardiac Surgery: No Cholecystectomy: No Lung Surgery: No Neurologic Surgery: No Orthopedic Surgery: No - Immunization History Immunization Up to Date: Yes - Suicide/Smoking/Psychosocial Hx Smoking Status: No Smoking History: Never smoked Have you smoked in the past 12 months: No Number of Cigarettes Smoked Daily: 0 If you are a former smoker, when did you quit?: 1994 Information on smoking cessation initiated: No Hx Alcohol Use: No Drug/Substance Use Hx: No Substance Use Type: None Hx Substance Use Treatment: No Review of Systems - Review of Systems Constitutional: No: Chills, Diaphoresis, Fever HEENTM: No: Eye Pain, Blurred Vision Respiratory: No: Cough, Orthopnea, Shortness of Breath Cardiac (ROS): Yes: Lightheadedness, Palpitations ABD/GI: Yes: Abd. Pain w/ defecation. No: Abdominal Distended, Blood Streaked Bowels : No: Burning, Dysuria Musculoskeletal: No: Back Pain, Gout All Other Systems: Reviewed and Negative *Physical Exam - Vital Signs Last Vital Signs Temp Pulse Resp BP Pulse Ox 98.6 F 74 20 151/106 97 01/17/18 00:25 01/17/18 00:25 01/17/18 00:25 01/17/18 00:25 01/17/18 00:25 - Physical Exam General Appearance: Yes: Nourished HEENT: positive: HASEEB Neck: positive: Trachea midline Respiratory/Chest: positive: Lungs Clear, Normal Breath Sounds Cardiovascular: positive: Regular Rhythm, Regular Rate, S1, S2 Gastrointestinal/Abdominal: positive: Normal Bowel Sounds, Tender, Flat Musculoskeletal: positive: Normal Inspection Extremity: positive: Normal Capillary Refill. negative: Normal Inspection Integumentary: positive: Normal Color, Dry, Warm Neurologic: positive: Fully Oriented, Alert, Normal Mood/Affect Heart Score/ECG Review #1 General ECG Interpretation: Sinus Rhythm, Normal Rate (65), Normal Intervals, No acute ischemic changes ED Treatment Course - LABORATORY CBC & Chemistry Diagram: 01/17/18 01:43 01/17/18 01:43 Medical Decision Making - Medical Decision Making 01/17/18 03:36 47yo male htn dm here with c/o elevated bp and palpitations. now bp improved. plan labs ekg cxr r/o end organ damage. will consider admission for atypical acs , elevated bp . pt given asa, gi cocktail. *DC/Admit/Observation/Transfer Diagnosis at time of Disposition: Atypical angina, Hypertension - Discharge Dispostion Decision to Admit order: Yes - Referrals Referrals: Malia Alicea MD [Primary Care Provider] - - Patient Instructions - Post Discharge Activity
[2018-01-17] MEDS ORDERED: FAMOTIDINE 20 MG/50 ML IVPB 20 MG/50 ML MG IVPB ONE ×2 (03:04→04:39)
[2018-01-17] MEDS ORDERED: MAG HYDROX/AL HYDROX/SIMETH 30 ML UNIT-DOSE CUP PO ONE ×2 (03:04→17:45)
[2018-01-17] MEDS ORDERED: ASPIRIN 81 MG CHEWABLE TABLETS PO ONE (03:04)
[2018-01-17] MEDS ORDERED: ASPIRIN 81 MG CHEWABLE TABLETS ONE ×2 (04:39→08:33)
[2018-01-17] MEDS ORDERED: MAG HYDROX/AL HYDROX/SIMETH 30 ML UNIT-DOSE CUP ONE (04:39)
--- NOTE | 2018-01-17 05:22 | HP ---
CHIEF COMPLAINT: Palpitations, Elevated BP, Epigastric Discomfort PCP: Dr Howell HISTORY OF PRESENT ILLNESS: This is a 47 y/o man with a PMHx of HTN, HLD, DM, Morbid Obesity. Who presents to the ED with palpitations, elevated BP and epigastric pain. Patient reports taking his BP at home and noting it to be elevated 180/100- 190/110, with palpitations. Patient denies SOB, CP, dizziness. Patient denies fever, chills, cough, V/D, constipation, dysuria ER course was notable for: (1) Trop I < 0.02 (2) Cr 1.4 (3) BP 151/109 Recent Travel: None PAST MEDICAL HISTORY: See HPI PAST SURGICAL HISTORY: Social History: Smoking: Never Alcohol: None Drugs: None Family History: Allergies shellfish derived Allergy (Verified 01/17/18 01:08) Rash HOME MEDICATIONS: Home Medications Medication Instructions Recorded Glipizide [Glipizide ER] 5 mg PO DAILY 09/15/12 Losartan Potassium 50 mg PO DAILY 10/22/17 Aspirin [ASA -] 81 mg PO DAILY #30 tab.chew 10/24/17 Diltiazem Cd [Cardizem Cd -] 120 mg PO DAILY #30 cap.cd.24h 10/24/17 REVIEW OF SYSTEMS CONSTITUTIONAL: Absent: fever, chills, diaphoresis, generalized weakness, malaise, loss of appetite, weight change HEENT: Absent: rhinorrhea, nasal congestion, throat pain, throat swelling, difficulty swallowing, mouth swelling, ear pain, eye pain, visual changes CARDIOVASCULAR: palpitations Absent: chest pain, syncope, irregular heart rate, lightheadedness, peripheral edema RESPIRATORY: Absent: cough, shortness of breath, dyspnea with exertion, orthopnea, wheezing, stridor, hemoptysis GASTROINTESTINAL: epigastric pain Absent: abdominal distension, nausea, vomiting, diarrhea, constipation, melena, hematochezia GENITOURINARY: Absent: dysuria, frequency, urgency, hesitancy, hematuria, flank pain, genital pain MUSCULOSKELETAL: Absent: myalgia, arthralgia, joint swelling, back pain, neck pain SKIN: Absent: rash, itching, pallor HEMATOLOGIC/IMMUNOLOGIC: Absent: easy bleeding, easy bruising, lymphadenopathy, frequent infections ENDOCRINE: Absent: unexplained weight gain, unexplained weight loss, heat intolerance, cold intolerance NEUROLOGIC: Absent: headache, focal weakness or paresthesias, dizziness, unsteady gait, seizure, mental status changes, bladder or bowel incontinence PSYCHIATRIC: Absent: anxiety, depression, suicidal or homicidal ideation, hallucinations. PHYSICAL EXAMINATION Vital Signs - 24 hr 01/17/18 00:25 Temperature 98.6 F Pulse Rate 74 Respiratory 20 Rate Blood Pressure 151/106 O2 Sat by Pulse 97 Oximetry (%) GENERAL: Awake, alert, and fully oriented, in no acute distress. HEAD: Normal with no signs of trauma. EYES: Pupils equal, round and reactive to light, extraocular movements intact, sclera anicteric, conjunctiva clear. No lid lag. EARS, NOSE, THROAT: Ears normal, nares patent, oropharynx clear without exudates. Moist mucous membranes. NECK: Normal range of motion, supple without lymphadenopathy, JVD, or masses. LUNGS: Breath sounds equal, clear to auscultation bilaterally. No wheezes, and no crackles. No accessory muscle use. HEART: Regular rate and rhythm, normal S1 and S2 without murmur, rub or gallop. ABDOMEN: Soft, tenderness to epigastrium, not distended, normoactive bowel sounds, no guarding, no rebound, no masses. No hepatomegaly or splenomegaly. MUSCULOSKELETAL: Normal range of motion at all joints. No bony deformities or tenderness. No CVA tenderness. UPPER EXTREMITIES: 2+ pulses, warm, well-perfused. No cyanosis. No clubbing. No peripheral edema. LOWER EXTREMITIES: 2+ pulses, warm, well-perfused. No calf tenderness. No peripheral edema. NEUROLOGICAL: Cranial nerves II-XII intact. Normal speech. Gait not observed. PSYCHIATRIC: Cooperative. Good eye contact. Appropriate mood and affect. SKIN: Warm, dry, normal turgor, no rashes or lesions noted, normal capillary refill. Laboratory Results - last 24 hr 01/17/18 01/17/18 01:43 01:43 WBC 3.6 L RBC 4.60 Hgb 13.3 Hct 39.9 MCV 86.8 MCH 29.0 MCHC 33.4 RDW 15.2 Plt Count 156 MPV 10.7 Absolute Neuts (auto) 1.6 Neutrophils % 45.5 D Lymphocytes % 40.4 H D Monocytes % 10.4 H D Eosinophils % 2.9 D Basophils % 0.8 Nucleated RBC % 0 Sodium 140 Potassium 4.3 Chloride 104 Carbon Dioxide 32 Anion Gap 4 L BUN 14 Creatinine 1.4 H Creat Clearance w eGFR 53.86 Random Glucose 97 Calcium 8.7 Total Bilirubin 0.7 AST 22 ALT 26 Alkaline Phosphatase 75 Creatine Kinase 439 H Creatine Kinase Index 0.9 CK-MB (CK-2) 4.20 H Troponin I < 0.02 Total Protein 6.7 Albumin 3.4 ASSESSMENT/PLAN: 47 y/o man placed in Tele Observation for Palpitations, Uncontrolled HTN, JENISE, Epigastric Pain for further evaluation of their emergent condition. Problem List - Problem (1) Palpitations Assessment/Plan: - r/o ACS vs Uncontrolled HTN - Continue cardiac monitoring - EKG reviewed - Serial Enzymes - Appreciate Cardiology consult - Asa given in ED - Echo in am - Lipid Panel, HgbA1c in am Code(s): R00.2 - PALPITATIONS (2) Uncontrolled hypertension Assessment/Plan: - Cardiac monitoring - Continue home meds - Appreciate Cardiology consult - Consider Renal US r/o renal artery stenosis - Low NA Diet - Counseled on weight loss and exercise Code(s): I10 - ESSENTIAL (PRIMARY) HYPERTENSION (3) Epigastric abdominal pain Assessment/Plan: - r/o ACS vs Gastritis - Serial Enzymes - Cardiac Monitoring - Diet as tolerated - Monitor lytes Code(s): R10.13 - EPIGASTRIC PAIN (4) Diabetes mellitus Assessment/Plan: - stable - BGMs - Continue home meds - HgbA1c in am Code(s): E11.9 - TYPE 2 DIABETES MELLITUS WITHOUT COMPLICATIONS (5) GERD (gastroesophageal reflux disease) Assessment/Plan: - given Pepcid in ED - Will start Protonix Code(s): K21.9 - GASTRO-ESOPHAGEAL REFLUX DISEASE WITHOUT ESOPHAGITIS Qualifiers: (6) Asthma Assessment/Plan: - controlled - Albuterol neb prn - Peak Flow Code(s): J45.909 - UNSPECIFIED ASTHMA, UNCOMPLICATED (7) HLD (hyperlipidemia) Assessment/Plan: - stable - Continue home med - Monitor LFTs Code(s): E78.5 - HYPERLIPIDEMIA, UNSPECIFIED Visit type - Emergency Visit Emergency Visit: Yes ED Registration Date: 01/17/18 Care time: The patient presented to the Emergency Department on the above date and was hospitalized for further evaluation of their emergent condition. - New Patient This patient is new to me today: Yes Date on this admission: 01/17/18 - Critical Care Critical Care patient: No Hospitalist Screening - Colonoscopy Questionnaire Colonoscopy Questionnaire: Colonoscopy Questionnaire - Patient: 50 - 75 years old and never had a screening colonoscopy: No History of colon or rectal polyps, or CA: No History of IBD, Crohn's disease or UC: No History of abdominal radiation therapy as a child: No - Relative: 1 with colon or rectal CA, or polyps at age 60 or younger: No Colon or rectal CA diagnosed at age 45 or younger: No Multiple relatives with colon or rectal CA: No - Outcome: Screening Result: Negative Screen
[2018-01-17] MEDS ORDERED: LOSARTAN POTASSIUM 25 MG TABLET PO ONE (07:05)
[2018-01-17] MEDS ORDERED: LOSARTAN POTASSIUM 50 MG TABLET (FP) PO ONE (08:15)
[2018-01-17 08:17] LABS: CHOLESTEROL 142 mg/dL (50-200); HDL CHOLESTEROL 60 mg/dL (40-60); MAGNESIUM 2.2 mg/dL (1.8-2.4); PHOSPHOROUS 3.5 mg/dL (2.5-4.9); TRIGLYCERIDES 57 mg/dL (0-150)
[2018-01-17 08:50] LABS: URINE APPEARANCE CLEAR; URINE BILIRUBIN NEGATIVE (<2.0 mg/dL); URINE COLOR STRAW; URINE GLUCOSE (UA) NEGATIVE (NEGATIVE); URINE KETONE NEGATIVE (NEGATIVE); URINE LEUK ESTERASE NEGATIVE (NEGATIVE); URINE NITRITE NEGATIVE (NEGATIVE); URINE PROTEIN NEGATIVE (NEGATIVE); URINE UROBILINOGEN NEGATIVE mg/dL (0.2-1.0)
[2018-01-17] MEDS ORDERED: glipiZIDE-XL 5 MG TAB.ER.24 PO SCH ×2 (10:00→11:14)
[2018-01-17] MEDS: LOSARTAN POTASSIUM 50 MG TABLET (FP) PO SCH (10:25)
[2018-01-17] MEDS: PANTOPRAZOLE 20 MG TABLET (FP) PO SCH (10:25)
--- NOTE | 2018-01-17 10:27 | CON.CARD ---
Consult Consult Specialty:: Cardiology Referred by:: Avel Reason for Consultation:: palpitations - History of Present Illness Chief Complaint: palpitations History of Present Illness: 47 m hx htn, hld, dm here with palpitations. Sees Dr. Bautista in clinic. Has had prior ER visits and admission for same, noted in the past to have PACs with unremarkable echo and mild ischemia on stress. Has been on diltiazem. Trop neg x 2, Cr 1.4 in ER. Has had palps on and off for the last 3 days, this morning had a brief episode which may have correlated with NSVT episode on tele around 9:30 AM. No chest pain, dizziness, lightheadedness, edema. BP has been high the last few days at home, per patient 160s-190s SBP, doesn't remember diastolic. Sometimes as low as 130s but has not seen lower. - History Source History Provided By: Patient Limitations to Obtaining History: No Limitations - Past Medical History Cardio/Vascular: Yes: HTN - Alcohol/Substance Use Hx Alcohol Use: No - Smoking History Smoking history: Never smoked Have you smoked in the past 12 months: No Aproximately how many cigarettes per day: 0 If you are a former smoker, when did you quit?: 1994 Home Medications - Allergies Allergies/Adverse Reactions: Allergies Allergy/AdvReac Type Severity Reaction Status Date / Time shellfish derived Allergy Rash Verified 01/17/18 01:08 - Home Medications Home Medications: Ambulatory Orders Glipizide [Glipizide ER] 5 mg PO DAILY 09/15/12 Losartan Potassium 50 mg PO DAILY 10/22/17 Aspirin [ASA -] 81 mg PO DAILY #30 tab.chew 10/24/17 Diltiazem Cd [Cardizem Cd -] 120 mg PO DAILY #30 cap.cd.24h 10/24/17 Family Disease History - Family Disease History Family History: Unremarkable Review of Systems - Review of Systems Constitutional: reports: No Symptoms Eyes: reports: No Symptoms HENT: reports: No Symptoms Neck: reports: No Symptoms Cardiovascular: reports: No Symptoms Respiratory: reports: No Symptoms Gastrointestinal: reports: Nausea Genitourinary: reports: No Symptoms Musculoskeletal: reports: No Symptoms Integumentary: reports: No Symptoms Neurological: reports: No Symptoms Endocrine: reports: No Symptoms Hematology/Lymphatic: reports: No Symptoms Vital Signs: Vital Signs Temperature 98.6 F 01/17/18 00:25 Pulse Rate 74 01/17/18 00:25 Respiratory Rate 20 01/17/18 00:25 Blood Pressure 161/99 01/17/18 06:55 O2 Sat by Pulse Oximetry (%) 97 01/17/18 00:25 Constitutional: Yes: Well Nourished, No Distress, Calm Eyes: Yes: Conjunctiva Clear, EOM Intact HENT: Yes: Atraumatic, Normocephalic Neck: Yes: Supple, Trachea Midline Respiratory: Yes: Regular, CTA Bilaterally Gastrointestinal: Yes: Normal Bowel Sounds, Soft Renal/: Yes: WNL Cardiovascular: Yes: Regular Rate and Rhythm Heart Sounds: Yes: S1, S2 Musculoskeletal: Yes: WNL Extremities: Yes: WNL Edema: No Peripheral Pulses: 2+ Left Carotid, 2+ Right Carotid, 2+ Left Doralis Pedis, 2+ Right Dorsalis Pedis Integumentary: Yes: WNL Neurological: Yes: Alert, Oriented ...Motor Strength: WNL Psychiatric: Yes: Alert, Oriented - Other Data Labs, Other Data: CBC, BMP 01/17/18 01:43 01/17/18 01:43 Troponin, BNP 01/17/18 01/17/18 01:43 07:40 Troponin I < 0.02 < 0.02 Troponin, BNP 01/17/18 01/17/18 01:43 07:40 Troponin I < 0.02 < 0.02 Assessment/Plan ecg: sr, nl intervals, no ischemic changes echo 09/2017: nl lv/rv, lae, mild tr, ao root 4.5 cm stress mibi 09/2017 small zone of reversible defect c/w mild ischemia, nl EF tele: sinus, 8 beats of NSVT at 9:30 AM a/p: 47 m hx htn, hld, dm here with palpitations palps, abnl ecg/pacs: - palps seem to correlate with pacs on prior admission, cardiac testing was unremarkable in 09/2017 - this morning had palps may have correlated with PVCs, episode of NSVT - on diltiazem (prior side effects with bb), will increase dose to 180 mg daily htn: - BP elevated here - inc diltiazem as above -on home cozaar 50 and diltiazem 120 - cozaar held this morning in setting of JENISE JENISE - Cr 1.4, prior 1.1 - has had lower PO intake, nausea, may be prerenal hld: -stable
[2018-01-17] MEDS ORDERED: glipiZIDE 5 MG TABLET (FP) ONE (11:06)
--- NOTE | 2018-01-17 13:14 | PN ---
Progress Note (short form) - Note Progress Note: pt examined in Tele Events noted c/o burning sensation in chest, no nausea No palpitations no headaches Vital Signs - 24 hr 01/17/18 01/17/18 01/17/18 00:25 06:55 11:46 Temperature 98.6 F 97.6 F Pulse Rate 74 Pulse Rate [ 64 Right Apical] Respiratory 20 18 Rate Blood Pressure 151/106 Blood Pressure 161/99 135/89 [Left Arm] O2 Sat by Pulse 97 97 Oximetry (%) 01/17/18 01/17/18 12:20 13:40 Temperature 97.9 F 98.2 F Pulse Rate 66 69 Pulse Rate [ Right Apical] Respiratory 18 20 Rate Blood Pressure 147/96 138/88 Blood Pressure [Left Arm] O2 Sat by Pulse 99 Oximetry (%) Current Medications Generic Name Dose Route Start Last Admin Trade Name Freq PRN Reason Stop Dose Admin Al Hydroxide/Mg Hydroxide 30 ml 01/17/18 17:53 Mylanta Oral Suspension - PO Q6H PRN DYSPEPSIA Aspirin 81 mg 01/18/18 10:00 Asa - PO DAILY ANNAMARIE Diltiazem HCl 180 mg 01/17/18 11:15 01/17/18 12:29 Cardizem Cd - PO 180 mg DAILY ANNAMARIE Administration Glipizide 5 mg 01/17/18 11:14 Glucotrol Xl - PO DAILY@0700 ANNAMARIE Losartan Potassium 50 mg 01/17/18 10:00 01/17/18 10:25 Cozaar - PO Not Given DAILY ANNAMARIE Pantoprazole Sodium 20 mg 01/17/18 10:00 01/17/18 10:25 Protonix - PO 20 mg DAILY ANNAMARIE Administration Laboratory Results - last 24 hr 01/17/18 01/17/18 01/17/18 01:43 01:43 07:40 WBC 3.6 L RBC 4.60 Hgb 13.3 Hct 39.9 MCV 86.8 MCH 29.0 MCHC 33.4 RDW 15.2 Plt Count 156 MPV 10.7 Absolute Neuts (auto) 1.6 Neutrophils % 45.5 D Lymphocytes % 40.4 H D Monocytes % 10.4 H D Eosinophils % 2.9 D Basophils % 0.8 Nucleated RBC % 0 Sodium 140 Potassium 4.3 Chloride 104 Carbon Dioxide 32 Anion Gap 4 L BUN 14 Creatinine 1.4 H Creat Clearance w eGFR 53.86 Random Glucose 97 Hemoglobin A1c % Calcium 8.7 Phosphorus 3.5 Magnesium 2.2 Total Bilirubin 0.7 AST 22 ALT 26 Alkaline Phosphatase 75 Creatine Kinase 439 H Creatine Kinase Index 0.9 CK-MB (CK-2) 4.20 H Troponin I < 0.02 < 0.02 Total Protein 6.7 Albumin 3.4 Triglycerides 57 Cholesterol 142 Total LDL Cholesterol 77 HDL Cholesterol 60 TSH Free T4 Urine Color Urine Appearance Urine pH Ur Specific [place] Urine Protein Urine Glucose (UA) Urine Ketones Urine Blood Urine Nitrite Urine Bilirubin Urine Urobilinogen Ur Leukocyte Esterase 01/17/18 01/17/18 01/17/18 07:40 08:40 13:30 WBC RBC Hgb Hct MCV MCH MCHC RDW Plt Count MPV Absolute Neuts (auto) Neutrophils % Lymphocytes % Monocytes % Eosinophils % Basophils % Nucleated RBC % Sodium Potassium Chloride Carbon Dioxide Anion Gap BUN Creatinine Creat Clearance w eGFR Random Glucose Hemoglobin A1c % 5.9 Calcium Phosphorus Magnesium Total Bilirubin AST ALT Alkaline Phosphatase Creatine Kinase Creatine Kinase Index CK-MB (CK-2) Troponin I < 0.02 Total Protein Albumin Triglycerides Cholesterol Total LDL Cholesterol HDL Cholesterol TSH Free T4 Urine Color Straw Urine Appearance Clear Urine pH 7.0 D Ur Specific [place] 1.011 Urine Protein Negative Urine Glucose (UA) Negative Urine Ketones Negative Urine Blood Negative Urine Nitrite Negative Urine Bilirubin Negative Urine Urobilinogen Negative Ur Leukocyte Esterase Negative 01/17/18 13:30 WBC RBC Hgb Hct MCV MCH MCHC RDW Plt Count MPV Absolute Neuts (auto) Neutrophils % Lymphocytes % Monocytes % Eosinophils % Basophils % Nucleated RBC % Sodium Potassium Chloride Carbon Dioxide Anion Gap BUN Creatinine Creat Clearance w eGFR Random Glucose Hemoglobin A1c % Calcium Phosphorus Magnesium Total Bilirubin AST ALT Alkaline Phosphatase Creatine Kinase Creatine Kinase Index CK-MB (CK-2) Troponin I Total Protein Albumin Triglycerides Cholesterol Total LDL Cholesterol HDL Cholesterol TSH 0.74 D Free T4 1.00 Urine Color Urine Appearance Urine pH Ur Specific [place] Urine Protein Urine Glucose (UA) Urine Ketones Urine Blood Urine Nitrite Urine Bilirubin Urine Urobilinogen Ur Leukocyte Esterase S1 S2 RRR Lungs clear Abd- soft, NT,ND, BS+ No edema A/P Check cardiac enzymes Cardiology eval noted-- increased Cardizem Telemetry OOB check thyroid function tests Problem List - Problems (1) High blood pressure Code(s): I10 - ESSENTIAL (PRIMARY) HYPERTENSION Qualifiers: (2) Uncontrolled hypertension Code(s): I10 - ESSENTIAL (PRIMARY) HYPERTENSION (3) Asthma Code(s): J45.909 - UNSPECIFIED ASTHMA, UNCOMPLICATED (4) Diabetes mellitus Code(s): E11.9 - TYPE 2 DIABETES MELLITUS WITHOUT COMPLICATIONS (5) Epigastric abdominal pain Code(s): R10.13 - EPIGASTRIC PAIN
--- NOTE | 2018-01-17 14:25 | ECHO ---
Name: CHIP MEDINA Exam:Adult Echocardiogram Study Date: 01/17/2018 08:22 AM Age: 47 yrs Reason For Study: PALPITATIONS MMode/2D Measurements & Calculations IVSd: 1.1 cm Ao root diam: 3.6 cm LVIDd: 4.6 cm LA dimension: 4.4 cm LVIDs: 3.3 cm LVPWd: 1.1 cm EDV(Teich): 96.4 ml ESV(Teich): 44.5 ml Doppler Measurements & Calculations MV E max omid: 44.4 cm/sec Med Peak E' Omid: 3.8 cm/sec MV A max omid: 54.3 cm/sec Med E/e': 11.7 MV E/A: 0.82 Lat Peak E' Omid: 5.0 cm/sec Lat E/e': 8.9 Procedure A complete two-dimensional transthoracic echocardiogram was performed (2D, M-mode, Doppler and color flow Doppler). The study was technically adequate with some images being suboptimal in quality. Left Ventricle There is mild concentric left ventricular hypertrophy. The left ventricular ejection fraction is norm al. Ejection Fraction = 55%. Grade I diastolic dysfunction, (abnormal relaxation pattern). Right Ventricle The right ventricle is normal in size and function. Atria The left atrium is mildly dilated. Right atrial size is normal. Mitral Valve There is mild mitral annular calcification. There is trace mitral regurgitation. Tricuspid Valve The tricuspid valve is normal in structure and function. Aortic Valve The aortic valve is normal in structure and function. Pulmonic Valve The pulmonic valve is not well visualized. Great Vessels The aortic root is normal size. Pericardium/Pleura There is no pericardial effusion. Interpretation Summary There is mild concentric left ventricular hypertrophy. The left ventricular ejection fraction is normal. Grade I diastolic dysfunction, (abnormal relaxation pattern). Walter White 01/17/2018 02:24 PM
[2018-01-17 15:09] VITALS: BMI 38.3
--- NOTE | 2018-01-17 16:19 | EKG ---
Test Reason : Blood Pressure : / mmHG Vent. Rate : 065 BPM Atrial Rate : 065 BPM P-R Int : 178 ms QRS Dur : 096 ms QT Int : 400 ms P-R-T Axes : 054 011 036 degrees QTc Int : 416 ms NORMAL SINUS RHYTHM NORMAL ECG WHEN COMPARED WITH ECG OF 22-OCT-2017 11:16, NO SIGNIFICANT CHANGE WAS FOUND Confirmed by Walter White ([id number]) on 01/17/2018 4:18:33 PM Referred By: Confirmed By:Walter White
[2018-01-17] MEDS ORDERED: MAG HYDROX/AL HYDROX/SIMETH 30 ML UNIT-DOSE CUP PO PRN (17:53)
[2018-01-18 06:54] LABS: BASO % 1.1 % (0-2.0); EOS % 3.1 % (0-4.5); HEMATOCRIT 42.3 % (35.4-49); HEMOGLOBIN 13.9 GM/dL (11.7-16.9); LYMPH % 47.7 % (8-40); MCH 28.4 pg (25.7-33.7); MCHC 32.7 g/dl (32.0-35.9); MEAN CELL VOLUME 86.9 fl (80-96); MEAN PLT VOLUME 10.8 fl (7.5-11.1); NEUT % 38.1 % (42.8-82.8); PLATELET COUNT 151 K/MM3 (134-434); RBC 4.87 M/mm3 (4.00-5.60); RDW 14.7 % (11.9-15.9); WHITE BLOOD COUNT 3.2 K/mm3 (4.0-10.0)
[2018-01-18 09:23] LABS: POTASSIUM 4.3 mmol/L (3.5-5.1)
[2018-01-18 09:29] VITALS: TEMP 98
[2018-01-18] MEDS: PANTOPRAZOLE 20 MG TABLET (FP) PO SCH (09:32)
[2018-01-18] MEDS: LOSARTAN POTASSIUM 50 MG TABLET (FP) PO SCH (09:32)
--- NOTE | 2018-01-18 09:37 | PN ---
Progress Note (short form) - Note Progress Note: s: dizzy, nauseated with higher dose of diltiazem. refused 180 mg pill this morning. no chest pain, sob, edema, orthopnea. occasional palps while here. tele:sinus, PVCs, episodes of NSVT o: Current Medications Al Hydroxide/Mg Hydroxide (Mylanta Oral Suspension -) 30 ml PO Q6H PRN PRN Reason: DYSPEPSIA Aspirin (Asa -) 81 mg PO DAILY [facility] Last Admin: 01/18/18 09:33 Dose: 81 mg Diltiazem HCl (Cardizem Cd -) 180 mg PO DAILY [facility] Last Admin: 01/18/18 09:32 Dose: 180 mg Glipizide (Glucotrol Xl -) 5 mg PO DAILY@0700 [facility] Last Admin: 01/18/18 06:32 Dose: Not Given Losartan Potassium (Cozaar -) 50 mg PO DAILY [facility] Last Admin: 01/18/18 09:32 Dose: 50 mg Pantoprazole Sodium (Protonix -) 20 mg PO DAILY [facility] Last Admin: 01/18/18 09:32 Dose: 20 mg Vital Signs: Vital Signs Period Temp Pulse Resp BP Sys/[place] Pulse Ox Last 24 Hr 97.4 F-98.2 F 58-71 18-20 135-158/79-96 97-99 Constitutional: Yes: Well Nourished, No Distress, Calm Eyes: Yes: Conjunctiva Clear, EOM Intact HENT: Yes: Atraumatic, Normocephalic Neck: Yes: Supple, Trachea Midline Respiratory: Yes: Regular, CTA Bilaterally Gastrointestinal: Yes: Normal Bowel Sounds, Soft Renal/: Yes: WNL Cardiovascular: Yes: Regular Rate and Rhythm Heart Sounds: Yes: S1, S2 Musculoskeletal: Yes: WNL Extremities: Yes: WNL Edema: No Peripheral Pulses: 2+ Left Carotid, 2+ Right Carotid, 2+ Left Doralis Pedis, 2+ Right Dorsalis Pedis Integumentary: Yes: WNL Neurological: Yes: Alert, Oriented ...Motor Strength: WNL Psychiatric: Yes: Alert, Oriented Assessment/Plan ecg: sr, nl intervals, no ischemic changes echo 09/2017: nl lv/rv, lae, mild tr, ao root 4.5 cm stress mibi 09/2017 small zone of reversible defect c/w mild ischemia, nl EF tele: sinus, 8 beats of NSVT at 9:30 AM a/p: 47 m hx htn, hld, dm here with palpitations palps, abnl ecg/pacs: - palps seem to correlate with pacs on prior admission, nl EF, low risk stress test 09/2017 - patient felt dizzy, nauseated with increasing diltiazem dose, prior intolerance to beta evy - continue prior dose of diltiazem 120 mg daily - follow up with Dr. Bautista for continued management, no further cardiac workup as inpatient htn: - continue cozaar and diltiazem JENISE - Cr 1.4, prior 1.1, now resolved hld: -stable
[2018-01-18] MEDS ORDERED: ASPIRIN 81 MG CHEWABLE TABLETS PO SCH (10:00)
[2018-01-18 10:13] LABS: ALBUMIN 3.4 g/dl (3.4-5.0); ANION GAP 8 MMOL/L (8-16); BILIRUBIN,TOTAL 0.8 mg/dL (0.2-1); BLOOD UREA NITROGEN 14 mg/dL (7-18); CALCIUM 8.8 mg/dL (8.5-10.1); CHLORIDE 105 mmol/L (98-107); CO2 28 mmol/L (21-32); CREATININE 1.2 mg/dL (0.55-1.3); GLUCOSE,RANDOM 94 mg/dL (74-106); MAGNESIUM 2.1 mg/dL (1.8-2.4); SGOT/AST 18 U/L (15-37); SODIUM 141 mmol/L (136-145); TOT PROT 6.7 g/dl (6.4-8.2)
[2018-01-18 10:36] LABS: ALK PHOS 77 U/L (45-117); SGPT/ALT 24 U/L (13-61)
--- NOTE | 2018-01-18 12:22 | PN ---
Progress Note (short form) - Note Progress Note: pt examined in Tele Events noted c/o nausea and dizziness after taking increased dose of Cardizem No palpitations rt upper quadrant aching stools normal , no constipation no headaches Vital Signs - 24 hr 01/17/18 01/17/18 01/17/18 13:40 18:00 21:00 Temperature 98.2 F 98.2 F 98 F Pulse Rate 69 65 66 Respiratory 20 20 20 Rate Blood Pressure 138/88 148/90 139/87 O2 Sat by Pulse Oximetry (%) 01/17/18 01/18/18 01/18/18 23:00 02:00 06:00 Temperature 97.4 F L 98.2 F Pulse Rate 69 58 L Respiratory 20 20 Rate Blood Pressure 154/90 153/88 O2 Sat by Pulse 99 Oximetry (%) 01/18/18 01/18/18 09:00 09:28 Temperature 98 F Pulse Rate 71 Respiratory 20 20 Rate Blood Pressure 158/79 O2 Sat by Pulse 100 Oximetry (%) Current Medications Generic Name Dose Route Start Last Admin Trade Name Freq PRN Reason Stop Dose Admin Al Hydroxide/Mg Hydroxide 30 ml 01/17/18 17:53 Mylanta Oral Suspension - PO Q6H PRN DYSPEPSIA Aspirin 81 mg 01/18/18 10:00 01/18/18 09:33 Asa - PO 81 mg DAILY ANNAMARIE Administration Diltiazem HCl 120 mg 01/18/18 11:30 Cardizem Cd - PO DAILY ANNAMARIE Glipizide 5 mg 01/17/18 11:14 01/18/18 06:32 Glucotrol Xl - PO Not Given DAILY@0700 [facility] Losartan Potassium 50 mg 01/17/18 10:00 01/18/18 09:32 Cozaar - PO 50 mg DAILY ANNAMARIE Administration Pantoprazole Sodium 20 mg 01/17/18 10:00 01/18/18 09:32 Protonix - PO 20 mg DAILY ANNAMARIE Administration Laboratory Results - last 24 hr 01/17/18 01/17/18 01/17/18 13:30 13:30 18:37 WBC RBC Hgb Hct MCV MCH MCHC RDW Plt Count MPV Absolute Neuts (auto) Neutrophils % Lymphocytes % Monocytes % Eosinophils % Basophils % Nucleated RBC % Sodium Potassium Chloride Carbon Dioxide Anion Gap BUN Creatinine Creat Clearance w eGFR POC Glucometer 88 Random Glucose Calcium Magnesium Total Bilirubin AST ALT Alkaline Phosphatase Troponin I < 0.02 Total Protein Albumin TSH 0.74 D Free T4 1.00 HIV 1&2 Antibody Screen HIV P24 Antigen 01/18/18 01/18/18 01/18/18 05:30 05:30 05:48 WBC 3.2 L RBC 4.87 Hgb 13.9 Hct 42.3 MCV 86.9 MCH 28.4 MCHC 32.7 RDW 14.7 Plt Count 151 MPV 10.8 Absolute Neuts (auto) 1.2 L Neutrophils % 38.1 L Lymphocytes % 47.7 H Monocytes % 10.0 Eosinophils % 3.1 Basophils % 1.1 Nucleated RBC % 0 Sodium 141 Potassium 4.3 Chloride 105 Carbon Dioxide 28 Anion Gap 8 BUN 14 Creatinine 1.2 Creat Clearance w eGFR > 60 POC Glucometer 88 Random Glucose 94 Calcium 8.8 Magnesium 2.1 Total Bilirubin 0.8 AST 18 ALT 24 Alkaline Phosphatase 77 Troponin I Total Protein 6.7 Albumin 3.4 TSH Free T4 HIV 1&2 Antibody Screen HIV P24 Antigen 01/18/18 09:05 WBC RBC Hgb Hct MCV MCH MCHC RDW Plt Count MPV Absolute Neuts (auto) Neutrophils % Lymphocytes % Monocytes % Eosinophils % Basophils % Nucleated RBC % Sodium Potassium Chloride Carbon Dioxide Anion Gap BUN Creatinine Creat Clearance w eGFR POC Glucometer Random Glucose Calcium Magnesium Total Bilirubin AST ALT Alkaline Phosphatase Troponin I Total Protein Albumin TSH Free T4 HIV 1&2 Antibody Screen Negative HIV P24 Antigen Negative S1 S2 RRR Lungs clear Abd- soft, NT,ND, BS+ No edema A/P cardiac enzymes negative renal function at baseline check Abd sono GI eval Pt has been frequently going to ER with increased heart rate , palpitations, abd aching and nausea- has been cleared cardiac potts-- will need to r/o GI component Cardizem decreased Telemetry OOB thyroid function tests - normal Problem List - Problems (1) High blood pressure Code(s): I10 - ESSENTIAL (PRIMARY) HYPERTENSION Qualifiers: (2) Uncontrolled hypertension Code(s): I10 - ESSENTIAL (PRIMARY) HYPERTENSION (3) Asthma Code(s): J45.909 - UNSPECIFIED ASTHMA, UNCOMPLICATED (4) Diabetes mellitus Code(s): E11.9 - TYPE 2 DIABETES MELLITUS WITHOUT COMPLICATIONS (5) Epigastric abdominal pain Code(s): R10.13 - EPIGASTRIC PAIN
[2018-01-18 12:32] VITALS: BP 148/78; PULSE 73
--- NOTE | 2018-01-18 12:42 | DS ---
Physical Examination Vital Signs: Vital Signs Temperature 98 F 01/18/18 09:28 Pulse Rate 73 01/18/18 12:32 Respiratory Rate 20 01/18/18 12:32 Blood Pressure 148/78 01/18/18 12:32 O2 Sat by Pulse Oximetry (%) 100 01/18/18 09:00 Labs: CBC, BMP 01/18/18 05:30 01/18/18 05:30 Discharge Summary Reason For Visit: ATYPICAL ANGINA HYPERTENSION Current Active Problems Atypical angina (Acute) High blood pressure (Acute) Uncontrolled hypertension (Acute) Hospital Course: see progress note pt wants to gp home he will follow up with GI - DR Rucker as outpt Aura rose as outpt Condition: Improved - Instructions Referrals: Malia Alicea MD [Primary Care Provider] - Jillian Rucker MD [Staff Physician] - Disposition: HOME - Home Medications Comprehensive Discharge Medication List: Ambulatory Orders Glipizide [Glipizide ER] 5 mg PO DAILY 09/15/12 Losartan Potassium 50 mg PO DAILY 10/22/17 Aspirin [ASA -] 81 mg PO DAILY #30 tab.chew 10/24/17 Diltiazem Cd [Cardizem Cd -] 120 mg PO DAILY #30 cap.cd.24h 10/24/17 Losartan Potassium 25 mg PO ACDIN 01/17/18 Mag Hydrox/Al Hydrox/Simeth [Mylanta Oral Suspension -] 30 ml PO Q6H PRN #20 cup 01/18/18 Pantoprazole Sodium [Protonix -] 20 mg PO DAILY #30 tablet.ec 01/18/18
== END 2018-01-18 13:27 | disposition home or self-care (01) ==
LOC: JER 00:19 → JERBED 05:14 → UNDOADMOB 05:39 → JERBED 05:39 → J4W 12:13
PROVIDERS: ADMIT Internal Medicine; ATTEND Internal Medicine
PROC: 3E033GC Introduction of Other Therapeutic Substance into Peripheral Vein, Percutaneous Approach (ICD-10-PCS; principal; 2018-01-17)
DX: I20.8 Other forms of angina pectoris (principal); I10 Essential (primary) hypertension; K21.9 Gastro-esophageal reflux disease without esophagitis; E11.9 Type 2 diabetes mellitus without complications; Z79.84 Long term (current) use of oral hypoglycemic drugs; N17.9 Acute kidney failure, unspecified; J45.909 Unspecified asthma, uncomplicated; K76.0 Fatty (change of) liver, not elsewhere classified; E78.5 Hyperlipidemia, unspecified; Z79.82 Long term (current) use of aspirin; Z91.013 Allergy to seafood
CPT/HCPCS: 36415; 80048; 80053; 80061; 81003; 82550; 82553; 82962; 83036; 83721; 83735; 84100; 84439; 84443; 84484; 85025; 87389; 93005; 93010; 93306-TC; 99284-25; G0378

== ENCOUNTER 2021-07-23 05:48 | Emergency (ER) | payer OTHER ==
[2021-07-23 06:16] VITALS: BMI 35.6
[2021-07-23] MEDS ORDERED: ONDANSETRON 4 MG/2 ML VIAL IVPUSH ONE (07:44)
[2021-07-23 08:04] LABS: CALCIUM 8.2 mg/dL (8.5-10.1)
[2021-07-23 08:05] LABS: ALBUMIN 3.1 g/dl (3.4-5.0); BLOOD UREA NITROGEN 20.6 mg/dL (7-18); MAGNESIUM 2.4 mg/dL (1.8-2.4)
[2021-07-23 08:08] LABS: CREATININE 1.3 mg/dL (0.55-1.3)
[2021-07-23 08:09] LABS: BILIRUBIN,TOTAL 0.3 mg/dL (0.2-1)
[2021-07-23 08:10] LABS: TOT PROT 6.2 g/dl (6.4-8.2)
[2021-07-23] MEDS ORDERED: ONDANSETRON 4 MG/2 ML VIAL ONE (08:14)
[2021-07-23 08:25] LABS: BASO % 0.6 % (0-2.0); EOS % 2.8 % (0-4.5); HEMATOCRIT 36.2 % (35.4-49); HEMOGLOBIN 11.9 GM/dL (11.7-16.9); LYMPH % 22.5 % (8-40); MCH 27.3 pg (25.7-33.7); MCHC 32.9 g/dl (32.0-35.9); MEAN CELL VOLUME 83.1 fl (80-96); MEAN PLT VOLUME 10.6 fl (7.5-11.1); MONO % 8.3 % (3.8-10.2); NEUT % 65.8 % (42.8-82.8); PLATELET COUNT 144 10^3/uL (134-434); RBC 4.35 M/mm3 (4.00-5.60); RDW 16.6 % (11.9-15.9); WHITE BLOOD COUNT 3.7 K/mm3 (4.0-10.0)
[2021-07-23 11:26] VITALS: BP 134/78; PULSE 64; TEMP 98.6
== END 2021-07-23 11:30 | disposition home or self-care (01) ==
LOC: JER 05:48
PROC: 3E033GC Introduction of Other Therapeutic Substance into Peripheral Vein, Percutaneous Approach (ICD-10-PCS; principal; 2021-07-23)
DX: R55 Syncope and collapse (principal)
CPT/HCPCS: 36415; 71045-TC-FY; 80053; 82962; 83735; 84484; 85025; 93005; 93010; 99285-25

== ENCOUNTER 2024-05-25 06:24 | Emergency (ER) | payer OTHER ==
[2024-05-25 06:34] VITALS: TEMP 98.1; BMI 36.1
[2024-05-25 07:48] LABS: POTASSIUM 4.5 mmol/L (3.5-5.1)
[2024-05-25 07:51] LABS: ALBUMIN 3.6 g/dl (3.4-5.0); CALCIUM 9.1 mg/dL (8.5-10.1); MAGNESIUM 2.2 mg/dL (1.8-2.4)
[2024-05-25 07:55] LABS: CREATININE 1.4 mg/dL (0.55-1.3)
[2024-05-25 07:56] LABS: BILIRUBIN,TOTAL 0.6 mg/dL (0.2-1)
[2024-05-25 09:25] LABS: BASO % 0.6 % (0-2.0); EOS % 2.9 % (0-4.5); HEMATOCRIT 41.1 % (35.4-49); HEMOGLOBIN 13.7 GM/dL (11.7-16.9); LYMPH % 49.6 % (8-40); MCH 29.2 pg (25.7-33.7); MCHC 33.3 g/dl (32.0-35.9); MEAN CELL VOLUME 87.6 fl (80-96); MEAN PLT VOLUME 9.9 fl (7.5-11.1); NEUT % 35.9 % (42.8-82.8); PLATELET COUNT 170 10^3/uL (134-434); RBC 4.69 M/mm3 (4.00-5.60); RDW 15.6 % (11.9-15.9); WHITE BLOOD COUNT 4.6 K/mm3 (4.0-10.0)
[2024-05-25 09:33] LABS: INR 1.07 (0.83-1.09); PROTHROMBIN TIME (PATIENT) 12.3 SEC (9.7-13.0)
[2024-05-25 09:35] LABS: ACTIVATED PTT 30.6 SECONDS (25.2-36.5)
[2024-05-25 11:11] VITALS: BP 131/85; PULSE 66; RESP 12
== END 2024-05-25 11:11 | disposition home or self-care (01) ==
LOC: JER 06:24
DX: R00.2 Palpitations (principal); I10 Essential (primary) hypertension; E11.9 Type 2 diabetes mellitus without complications
CPT/HCPCS: 36415; 71045-TC-FY; 80053; 83735; 84443; 84484; 85025; 85610; 85730; 93005; 93010; 99285-25